=== PATIENT | male | born 1945 | race Caucasian/White ===

== ENCOUNTER → 2018-01-03 14:49 | Outpatient (CLI) | payer MEDICARE, BC, SELFPAY ==
[2018-01-03 17:35] LABS: Absolute Lymphocyte Count 1.39 X10^3/ul (0.83-4.51); Absolute Neutrophil Count 4.4 X10^3/uL (2.0-7.7); Basophil# 0.02 X10^3/uL; Basophil% 0.3 % (0-1); Eosinophils% 2.9 % (0-5); Hemoglobin 15.7 g/dl (13.0-16.5); Lymphocyte # 1.39 X10^3/ul (4.0); Lymphocyte % 20.4 % (19-41); Mean Corp Hgb Conc 32.7 g/gl (32-36); Mean Corpuscular Hgb 30.1 pg (27.0-32.0); Mean Corpuscular Volume 92.1 fL (80-94); Monocyte# 0.79 X10^3/uL; Monocyte% 11.6 % (0-10); Neutrophil # 4.42 X10^3/uL (2.7-7.7); Neutrophil % 64.7 % (47-70); Platelet Count 249 K/mm3 (150-450); RBC Distribution Width CV 13.9 % (11.6-14.6); RBC Distribution Width SD 46.8 fl (35.1-43.9); Red Blood Count 5.21 M/mm3 (4.6-6.2); White Blood Count 6.8 K/mm3 (4.4-11.0)
[2018-01-03 17:37] LABS: POSITIVE COUNT NO; POSITIVE DIFFERENTIAL NO; POSITIVE MORPHOLOGY NO
[2018-01-03 17:48] LABS: CRP 4.42 mg/L (0.0-3.0)
[2018-01-03 17:59] LABS: Erythrocyte Sedimentation Rate 4 mm/hr (0-20)
== END ==
PROVIDERS: Family Provider Family Medicine; PCP Family Medicine; Visit Provider Ophthalmology
DX: H53.2 Diplopia (principal)
CPT/HCPCS: 36415; 85025; 85652; 86140

== ENCOUNTER → 2018-05-31 14:39 | Outpatient (CLI) | payer MEDICARE, BC, SELFPAY ==
[2018-05-31 16:14] LABS: Anion Gap 7 (5-15); BUN 28 mg/dL (7-18); BUN/Creat Ratio 18.8 RATIO (10-20); Chloride 110 mmol/L (98-107); Creatinine, Serum 1.49 mg/dL (0.70-1.30); EST Glomerular Filtration Rate 49 mL/min (>60); Est Glom Filt Rate - Afr Amer 60 mL/min (>60); Glucose 112 mg/dL (74-106); Sodium Level 143 mmol/L (136-145)
[2018-06-02 09:25] LABS: PSA, Free 1.53 ng/mL; PSA, Free % 36.4 % (.); PSA, Total Ultrasensitive 4.2 ng/mL (0.0-4.0)
== END ==
PROVIDERS: Family Provider Family Medicine; PCP Family Medicine; Visit Provider Family Medicine
DX: R97.20 Elevated prostate specific antigen [PSA] (principal); N28.9 Disorder of kidney and ureter, unspecified
CPT/HCPCS: 36415; 80048; 84153; 84154

== ENCOUNTER → 2020-05-25 | Outpatient (CLI) | payer MEDICARE, BC, SELFPAY ==
[2020-05-25 17:52] LABS: Anion Gap 4 (5-15); BUN 25 mg/dL (7-18); Calcium,Total 8.7 mg/dL (8.5-10.1); Chloride 112 mmol/L (98-107); Creatinine, Serum 1.67 mg/dL (0.70-1.30); EST Glomerular Filtration Rate 43 mL/min (>60); Est Glom Filt Rate - Afr Amer 52 mL/min (>60); Glucose 91 mg/dL (74-106); Sodium Level 139 mmol/L (136-145)
== END | disposition home or self-care (01) ==
PROVIDERS: PCP Family Medicine; Referring Provider Family Medicine; Visit Provider Family Medicine
DX: N28.9 Disorder of kidney and ureter, unspecified (principal)
CPT/HCPCS: 36415; 80048

== ENCOUNTER → 2020-06-10 14:41 | Outpatient (CLI) | payer MEDICARE, BC, SELFPAY ==
--- NOTE | 2020-06-10 14:46 | CT_ITS ---
STUDY: CT BRAIN WITHOUT CONTRAST REASON FOR EXAM: Male, 74 years old. Vertigo. Headache. RADIATION DOSAGE (If Supplied By Facility): CTDIvol = ( 60.81 ) mGy, DLP = ( 998.67 ) mGycm TECHNIQUE: Transaxial CT imaging of the brain was performed without administration of intravenous contrast material. Individualized dose optimization techniques were used for this CT. COMPARISON: None. FINDINGS: There is no acute bleed or infarct. There are mild chronic ischemic changes. The ventricles are normal in configuration. There is no hydrocephalus. The visualized paranasal sinuses are clear. The mastoid air cells are well aerated. There is no skull fracture. CT/Brain/Head without Contrast IMPRESSION: No acute intracranial abnormality. Mild chronic ischemic change. Electronically Signed: Miguelito Rivas, at 15:22 EDT Tel , Service support ,
== END ==
PROVIDERS: PCP Family Medicine; Referring Provider Family Medicine; Visit Provider Family Medicine
DX: R51 Headache (principal)
CPT/HCPCS: 70450

== ENCOUNTER → 2021-01-19 13:53 | Outpatient (CLI) | payer MEDICARE, BC, SELFPAY ==
--- NOTE | 2021-01-19 14:14 | MRI_ITS ---
STUDY: MRI BRAIN WITHOUT CONTRAST (ATTENTION INTERNAL AUDITORY CANALS - I.A.C.''s) REASON FOR EXAM: Male, 75 years old. dizzy spells, left hearing loss and tinnitus, no contrast due to low gfr TECHNIQUE: Standardized multiplanar fat and water weighted pulse sequences were obtained. COMPARISON: Head CT dated June 10, 2020 FINDINGS: Normal bilateral temporal bones. Normal bilateral internal auditory canals. There is no demonstrated intracanalicular or cisternal vestibular schwannoma (acoustic neuroma). There is no enhancement of the bilateral VIIth or VIIIth cranial nerves. Normal bilateral cochlea, vestibules and semicircular canals. There is mild cerebral atrophy with widening of the extra-axial spaces and ventricular dilatation. There are a limited number of small white matter hyperintensities, distributed throughout the deep white matter tracts of the cerebral hemispheres, consistent with mild chronic white matter ischemic changes. There is no evidence for recent intracranial ischemia or other cause of cytotoxic edema on diffusion weighted imaging (DWI). No hydrocephalus is present. Normal bilateral basal ganglia. Normal thalami. Normal flow voids within the major intracranial circulation suggesting patency by spin echo criteria. Normal venous enhancement. Basilar artery dolichoectasia. There is no enhancing intra-axial or extra-axial abnormality. There is no extra-axial fluid accumulation. Normal sella turcica, pituitary gland, infundibular stalk, optic chiasm and hypothalamus. Normal tectal plate and pineal gland. Normal midbrain, donte and medulla. Normal cerebellum. Normal basal cisterns. No demonstrated orbital abnormality, within the constraints of a routine brain study. Normal visualized paranasal sinuses. Normal calvarium and skull base. Normal visualized soft tissue structures. Normal visualized upper cervical spine. MRI/Brain without Contrast IMPRESSION: 1. Mild chronic ischemic and involutional changes of the brain, as described above. 2. Normal exam of the bilateral internal auditory canals. Electronically Signed: Isak Willingham MD at 22:22 EDT , Service support ,
== END ==
PROVIDERS: PCP Family Medicine; Referring Provider Family Medicine; Visit Provider Family Medicine
DX: R42 Dizziness and giddiness (principal)
CPT/HCPCS: 70551

== ENCOUNTER → 2021-05-26 16:54 | Outpatient (CLI) | payer MEDICARE, BC, SELFPAY ==
[2021-05-26 18:01] LABS: Anion Gap 7 (5-15); BUN 29 mg/dL (7-18); BUN/Creat Ratio 15.8 RATIO (10-20); Calcium,Total 9.2 mg/dL (8.5-10.1); Chloride 108 mmol/L (98-107); Creatinine, Serum 1.83 mg/dL (0.70-1.30); EST Glomerular Filtration Rate 39 mL/min (>60); Est Glom Filt Rate - Afr Amer 47 mL/min (>60); Glucose 91 mg/dL (74-106); Potassium 4.1 mmol/L (3.5-5.1); Sodium Level 138 mmol/L (136-145)
[2021-05-28 22:20] LABS: PSA, Free 2.48 ng/mL; PSA, Total Ultrasensitive 6.7 ng/mL (0.0-4.0)
== END ==
PROVIDERS: PCP Family Medicine; Visit Provider Family Medicine
DX: N18.30 Chronic kidney disease, stage 3 unspecified (principal); R97.20 Elevated prostate specific antigen [PSA]
CPT/HCPCS: 36415; 80048; 84153; 84154

== ENCOUNTER → 2021-05-31 12:38 | Outpatient (CLI) | payer MEDICARE, BC, SELFPAY ==
--- NOTE | 2021-05-31 12:47 | US_ITS ---
STUDY: RENAL ULTRASOUND - COMPLETE REASON FOR EXAM: Male, 75 years old. CKD TECHNIQUE: Ultrasound evaluation of the kidneys was performed with real-time and static serrano-scale imaging. COMPARISON: None. FINDINGS: RIGHT KIDNEY: with mild renal atrophy. The right kidney measures 8.2 cm x 4.7 cm x 4.7 cm. There is diffuse thinning of the renal cortex. The renal cortex measures 0.9 cm. Increased echotexture of the renal cortex. There is no right renal mass or cyst. There are no right renal calculi. There is no right hydronephrosis. DISTAL RIGHT URETER: There is non-visualization of the distal right ureter. There is no demonstrated right ureterovesical junction calculus. There is no demonstrated right ureteral jet. LEFT KIDNEY: with mild renal atrophy. The left kidney measures 8.8 cm x 5.2 cm x 5.1 cm. There is diffuse thinning of the renal cortex. The renal cortex measures 0.9 cm. Increased echotexture of the renal cortex. There is no left renal mass or cyst. There are no left renal calculi. There is no left hydronephrosis. DISTAL LEFT URETER: There is non-visualization of the distal left ureter. There is no demonstrated left ureterovesical junction calculus. There is no demonstrated left ureteral jet. BLADDER: The distended urinary bladder has a volume of 48 ml. There is a normal wall thickness of the distended urinary bladder. There is no demonstrated mass within the urinary bladder. There are no demonstrated bladder calculi. Heterogeneous enlargement of the prostate. US/Kidney and Bladder IMPRESSION: Mild degree of bilateral renal cortical thinning. Enlarged heterogeneous appearance of the prostate. Electronically Signed: Bear Christensen MD at 15:19 EDT , Service support ,
== END ==
PROVIDERS: PCP Family Medicine; Referring Provider Family Medicine; Visit Provider Family Medicine
DX: N18.30 Chronic kidney disease, stage 3 unspecified (principal)
CPT/HCPCS: 76770

== ENCOUNTER → 2021-06-09 08:32 | Outpatient (CLI) | payer MEDICARE, BC, SELFPAY ==
--- NOTE | 2021-06-09 08:35 | RDU_ITS ---
Reason For Study: Chronic kidney disease stage 3 Right Renal Artery Left Renal Artery Right renal artery ostium 69.5/21.6 Left renal artery ostium 59.7/13 RSV/EDV. PSV/EDV. Right renal artery proximal Left renal artery proximal PSV/EDV 94.2/32.1 PSV/EDV. 67.1/21.6 . Right renal artery mid 91.9/27.6 Left renal artery mid 86.7/31.4 PSV/EDV. PSV/EDV . Right renal artery distal 64/18.7 Left renal artery distal 71.3/19.6 PSV/EDV. PSV/EDV. Right RAR 1.17. Left RAR 1.08. Right Renal Parenchyma Left Renal Parenchyma Upper Pole Medula 21.5/7.4 PSV/EDV. Left upper pole medulla 22.7/7.3 Right upper pole medulla EDR 0.34 . PSV/EDV . Right upper pole medulla R.I. Left upper pole medulla EDR 0.32 . 0.66 . Left upper pole medulla R.I. 0.68 . Upper Pierce Cortx 19.7/6.9 PSV/EDV. UP Cortex 20.2/9.2 PSV/EDV. Right upper pole cortex EDR 0.35 . Left upper pole cortex EDR 0.45 . Right upper pole cortex R.I. 0.65 . Left upper pole cortex R.I. 0.55 . Right lower Pole medulla 21.1/6.4 Left lower Pole medulla 25.7/9.2 PSV/EDV . PSV/EDV . Right lower pole medulla EDR 0.30 . Left lower pole medulla EDR 0.36 . Right lower pole medulla R.I. Left lower pole medulla R.I. 0.64 . 0.70 . Lower Pole Cortx 20.2/7.3 PSV/EDV. Lower Pole Cortex 16.8/6 PSV/EDV. Left lower pole cortex EDR 0.36 . Right lower pole cortex EDR 0.35 . Left lower pole cortex R.I. 0.64 . Right lower pole cortex R.I. 0.65 . Left Renal Hilar Right Renal Hilar LT Hilar avg 54.1/15.9 PSV/EDV . Right Hilar avg 52.7/18.1 PSV/EDV. Left hilar acceleration time 40 Right hilar acceleration time 30 m/sec. m/sec. Left Renal Dimensions Right Renal Dimensions Left kidney size 8.83 cm . Right kidney size 8.27 cm . Left cortical dimension 1.50 cm . Right cortical dimension 1.21 cm . Aorta Proximal abdominal aorta 1.87 x 1.85 cm . Proximal abdominal aorta peak systolic velocity is 80.6 cm/sec . Distal abdominal aorta 1.58 x 1.57 cm . Distal abdominal aorta peak systolic velocity is 75.7 cm/sec . VL/Renal Artery Duplex Ultrasound Interpretation Summary Maximal aortic diameter 1.87 x 1.85 cm proximally Less than 60% stenosis bilateral renal arteries Diminished right renal length at 8.27 cm Borderline left renal length 8.83 cm Ordering Physician: Sandip Crespo Referring Physician: Sandip Crespo Performed By: Lesly Padilla RVT
== END ==
PROVIDERS: PCP Family Medicine; Referring Provider Family Medicine; Visit Provider Family Medicine
DX: N18.30 Chronic kidney disease, stage 3 unspecified (principal)
CPT/HCPCS: 93975

== ENCOUNTER → 2021-10-11 08:37 | Outpatient (CLI) | payer MEDICARE, BC, SELFPAY ==
--- NOTE | 2021-10-11 10:38 | NEURO_ITS ---
NCS and/or EMG Patient Report Ordering Doctor: Jordan Almeida DATE OF SERVICE: 10/11/21 Indication: Bilateral hand pain and numbness (right greater than left). No localized or radicular neck pain. Evaluate for entrapment neuropathy. Findings: Nerve conduction studies were performed in the right and left upper extremities. The right median motor study recording the abductor pollicis brevis showed a reduced amplitude, prolonged distal latency and slowed conduction velocity. The right ulnar motor study recording the abductor digiti minimi showed a normal amplitude, normal distal latency and normal conduction velocity. No conduction block or focal slowing was present across the elbow. Right median-ulnar lumbri terrie / interosseous motor latencies could not be compared due to the absence of the lumbrical response. The right median sensory response recording digit two showed an absent response. The right ulnar sensory response recording digit five showed a normal amplitude, normal latency and borderline conduction velocity. The right radial sensory response recording over the extensor snuff box showed a normal amplitude, latency and conduction velocity. The left median motor study recording the abductor pollicis brevis showed a normal amplitude, prolonged distal latency and slowed conduction velocity. The left ulnar motor study recording the abductor digiti minimi showed a normal amplitude, normal distal latency and normal conduction velocity. No conduction block or focal slowing was present across the elbow. Left median-ulnar lumbrical / interosseous motor latencies showed an increased median latency compared to the ulnar. The left median sensory response recording digit two showed a reduced amplitude, prolonged latency and markedly slowed conduction velocity. The left ulnar sensory response recording digit five showed a normal amplitude, latency and conduction velocity. The left radial sensory response recording over the extensor snuff box showed a normal amplitude, latency and conduction velocity. Needle EMG of the right upper extremity and cervical paraspinal muscles was per formed. Active denervation was seen in the abductor pollicis brevis muscle. Only one volitional motor unit in the abductor pollicis brevis was seen. The unit was polyphasic with reduced recruitment. All other motor unit morphology, activation and recruitment patterns were normal. Needle EMG of the left abductor pollicis brevis was performed. No denervation was seen, but insertional activity was slightly increased. Motor units were large and polyphasic with reduced recruitment. Impression: This is a markedly abnormal study. 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 These findings are compatible with the clinical diagnosis of carpal tunnel syndrome. More severe changes were seen in the median nerve on the right side, though the lesion could not be localized to the wrist due to the advance nature of the injury. Neuromuscular ultrasound could be considered for further localization and characterization of the pathology. In addition, there is no electrophysiologic evidence of a superimposed cervical radiculopathy in the right upper extremity. William Tabares D.O. Multi Select Codes Neurology Neurology Interp Codes: 81654-12 Musc tst done w/nerv tst dubose (interp) (59 modifier), 79698-41 Musc test done w/n test comp (interp) and 57177-89 Nrv cndj test 13/> studies (interp)
== END ==
PROVIDERS: PCP Family Medicine; Referring Provider Orthopaedic Surgery; Visit Provider Orthopaedic Surgery
DX: R20.2 Paresthesia of skin (principal)
CPT/HCPCS: 95885; 95886; 95913

== ENCOUNTER → 2021-10-27 09:51 | Outpatient (CLI) | payer MEDICARE, BC, SELFPAY ==
[2021-10-27 12:17] LABS: Absolute Lymphocyte Count 0.91 X10^3/uL (0.83-4.51); Absolute Neutrophil Count 3.6 X10^3/uL (2.0-7.7); Basophil# 0.04 X10^3/uL; Basophil% 0.7 % (0-1); Eosinophil# 0.23 X10^3/uL; Eosinophils% 4.1 % (0-5); Hematocrit 48.7 % (40-54); Lymphocyte # 0.91 X10^3/ul (0.83-4.51); Lymphocyte % 16.2 % (19-41); Mean Corp Hgb Conc 32.9 g/dL (32-36); Mean Corpuscular Hgb 30.2 pg (27.0-32.0); Mean Corpuscular Volume 92.1 fL (80-94); Monocyte# 0.79 X10^3/uL; Monocyte% 14.1 % (0-10); NRBC Flagged by Analyzer 0 % (0-5); Neutrophil % 64.2 % (47-70); Platelet Count 285 K/mm3 (150-450); RBC Distribution Width CV 13.7 % (11.6-14.6); RBC Distribution Width SD 46.2 fl (35.1-43.9); Red Blood Count 5.29 M/mm3 (4.6-6.2); White Blood Count 5.6 K/mm3 (4.4-11.0)
[2021-10-27 12:31] LABS: Prothrombin Time (Protime)PT. 12.5 SECONDS (11.7-14.9)
[2021-10-27 12:32] LABS: Partial Thromboplast Time 26.7 Seconds (24.1-36.2)
[2021-10-27 12:35] LABS: Anion Gap 9 (5-15); BUN 23 mg/dL (7-18); BUN/Creat Ratio 16.1 RATIO (10-20); Calcium,Total 9.1 mg/dL (8.5-10.1); Chloride 109 mmol/L (98-107); Creatinine, Serum 1.43 mg/dL (0.70-1.30); EST Glomerular Filtration Rate 51 mL/min (>60); Est Glom Filt Rate - Afr Amer 62 mL/min (>60); Glucose 73 mg/dL (74-106); Potassium 4.4 mmol/L (3.5-5.1); Sodium Level 141 mmol/L (136-145)
[2021-10-27 13:01] LABS: Rheumatoid Factor < 10.0 IU/mL (<15); Uric Acid 6.3 mg/dL (3.5-7.2)
[2021-10-28 14:09] LABS: PROEL- A/G Ratio 1.4 (0.7-1.7); PROEL- Albumin 3.9 g/dL (2.9-4.4); PROEL- Alpha-1 Globulin 0.2 g/dL (0.0-0.4); PROEL- Alpha-2 Globulin 0.7 g/dL (0.4-1.0); PROEL- Gamma Globulin 0.8 g/dL (0.4-1.8); PROEL- Globulin, Total 2.7 g/dL (2.2-3.9); PROEL- TOTAL PROTEIN 6.6 g/dL (6.0-8.5)
[2021-10-29 09:45] LABS: ANTINUCLEAR ANTIBODIES DIRECT Negative (Negative)
== END ==
PROVIDERS: PCP Family Medicine; Referring Provider Family Medicine; Visit Provider Family Medicine
DX: Z01.818 Encounter for other preprocedural examination (principal); N18.30 Chronic kidney disease, stage 3 unspecified
CPT/HCPCS: 36415; 80048; 84165; 84550; 85025; 85610; 85730; 86038; 86431

== ENCOUNTER 2021-12-17 09:32 | Outpatient (CLI) | payer MEDICARE, BC, SELFPAY ==
[2021-12-20 16:58] LABS: PSA, Free 2.74 ng/mL; PSA, Free % 35.6 % (.); PSA, Total Ultrasensitive 7.7 ng/mL (0.0-4.0)
== END 2021-12-17 23:59 | disposition home or self-care (01) ==
LOC: MFPLAB 09:33
PROVIDERS: PCP Family Medicine; Referring Provider Family Medicine; Visit Provider Nurse Practitioner Adult Health
DX: R97.20 Elevated prostate specific antigen [PSA] (principal)
CPT/HCPCS: 36415; 84153; 84154

== ENCOUNTER 2023-02-25 11:57 | Emergency (ER) | payer OTHER, SELFPAY ==
[2023-02-25 11:58] VITALS: BP 124/83; PULSE 63; RESP 16; TEMP 36.7; O2SAT 94
[2023-02-25 12:19] VITALS: BMI 23.3
--- NOTE | 2023-02-25 12:26 | EDS_ITS ---
HPI History of Present Illness Chief Complaint: Dizziness Narrative Narrative: 77-year-old male who states he has had a longstanding history of vertigo. 2 years ago he had a work-up including CT of the brain and MRI. He is to take meclizine and Phenergan for his bouts of vertigo. His symptoms had improved. However, he started having dizzy spells again. He went and saw an lead based paint technician who wanted to check his hearing, and also told him that his sodium was high and put him on a water pill. He presents today because he had to take his daughter to work at 1030, and when he got home he sat down, and became very vertiginous. He tried to take his medication but vomited. He denies any chest pain or shortness of breath, no headache, no paresthesias. He gets nauseated when he moves his head. He states he usually takes his medication, will lay down, and his symptoms will resolve. He denies any new symptoms and states this feels very similar to his previous episodes of vertigo. [facility] Medical History Vertigo Home Medications Phenergan 02/25/23 [History Last Taken Unknown] hydrochlorothiazide 12.5 mg tablet 12.5 mg PO DAILY 02/25/23 [History Last Taken Unknown] meclizine 02/25/23 [History Last Taken Unknown] meclizine 25 mg tablet 25 mg PO 4X/DAY PRN PRN Dizziness #20 tabs 02/25/23 [Rx Last Taken Unknown] promethazine 12.5 mg tablet 12.5 mg PO Q6H PRN nausea and vomiting #14 tabs 02/25/23 [Rx Last Taken Unknown] Allergy/AdvReac Type Severity Reaction Status Date / Time ibuprofen [From Advil] Allergy Angioedema Verified 02/25/23 12:01 naproxen [From Aleve] Allergy Angioedema Verified 02/25/23 12:01 Surgical History H/O knee surgery Social History Smoking Status: Never smoker ROS ROS ED ROS Narrative Constitutional: No fever, no chills. HEENT: No sore throat. No neck pain. No loss of vision. No rhinorrhea. Cardiovascular: No chest pain. No palpitations. No pedal edema. Respiratory: No cough, no shortness of breath. Abdominal: No abdominal pain. Positive nausea, positive vomiting. Genitourinary: No dysuria. No hematuria. Musculoskeletal: No myalgias. No arthralgias. Neurologic: No headaches. Positive vertigo no lightheadedness. No paresthesias. Skin: No rash. No change in color. Psychiatric: No depression. No anxiety. EXAM Physical Exam Narrative Exam Narrative: Afebrile. Vital signs noted. HEENT: Normocephalic. Atraumatic. PERRL, EOMI. Neck soft and supple. No point tenderness or step off. Cardiovascular: Regular rate and rhythm. No murmurs, rubs, or gallops appreciated. Respiratory: No tachypnea. Lungs clear to auscultation bilaterally. Gastrointestinal: Abdomen soft, nontender, with normoactive bowel sounds. No rebound or guarding. Neurological: Awake. Alert. Nonfocal, nonlateralizing. Alert and oriented to person, place, time, and current events. DTRs equal and symmetric. No nystagmus on examination. Skin: No rash. Normal color. No pallor. Musculoskeletal: No pedal edema. Full range of motion extremities. Const Vital Signs: 02/25/23 11:58 Temperature 98.1 F Temperature Source Temporal Pulse Rate 63 Respiratory Rate 16 Blood Pressure 124/83 H Blood Pressure Mean 96 Pulse Ox 94 Oxygen Delivery Method Room Air MDM MDM MDM Narrative Medical decision making narrative: I reviewed the patient's prior records. I will obtain a CBC and BMP to look for any changes of hypernatremia or hyponatremia. I will refrain from IV fluids currently. He was given his medications of Phenergan 12.5 mg intramuscularly then he will be given meclizine 25 mg orally to see if he tolerates this. Currently, given his history of vertigo I do not feel that emergent CT is indicated as he has an otherwise normal neurological examination. I reviewed the patient's laboratory work, he has normal white count of 9.0, hemoglobin normal at 15.5, platelet count normal at 262. Electrolyte panel shows BUN of 27 with a creatinine of 1.46, he has chronic kidney disease. Glucose appropriately elevated at 167 with a normal anion gap/low at 4. His other electrolytes are normal including his sodium of 137. Upon repeat examination at approximately 1400, he is improved after intramuscular Phenergan and oral meclizine. At this point in time, I feel he can be discharged safely home with follow-up. He was written new prescriptions for meclizine and for Phenergan to take in combination as he states this usually treats his vertigo. I do not feel that any CT imaging is indicated as this is similar to his previous episodes. He will follow-up with his primary care physician for possible referral to neurology as well. He states that he has not followed up with neurology in the past and has been following up with the ENT. Return instructions were reviewed. Disposition is discharged home in stable condition. Lab Data Attestation: I reviewed the patient's lab results. Labs: Laboratory Results - last 24 hr 02/25/23 02/25/23 12:25 12:25 WBC 9.0 RBC 5.05 Hgb 15.5 Hct 46.2 MCV 91.5 MCH 30.7 MCHC 33.5 RDW Std Deviation 42.3 RDW Coeff of Kosta 12.8 Plt Count 262 MPV 10.0 Immature Gran % (Auto) 0.400 Neut % (Auto) 80.9 H Lymph % (Auto) 9.2 L Hampton % (Auto) 7.5 Eos % (Auto) 1.6 Baso % (Auto) 0.4 Absolute Neuts (auto) 7.3 Absolute Lymphs (auto) 0.83 Nucleated RBC % 0 Sodium 137 Potassium 3.5 Chloride 107 Carbon Dioxide 26.0 Anion Gap 4 L BUN 27 H Creatinine 1.46 H Estim Creat Clear Calc 41.64 Est GFR (MDRD) Af Amer 60 Est GFR (MDRD) Non-Af 50 L BUN/Creatinine Ratio 18.5 Glucose 167 H Calcium 9.0 Discharge Plan Triage Chief Complaint: Dizziness ED Provider: Mika Leo Dx/Rx/DC Orders Clinical Impression: Vertigo, Nausea and vomiting Instructions: ED BPV Vertigo, ED Vertigo, Unspecified Prescriptions: New meclizine 25 mg tablet 25 mg PO 4X/DAY PRN PRN (Reason: Dizziness) Qty: 20 0RF promethazine 12.5 mg tablet 12.5 mg PO Q6H PRN (Reason: nausea and vomiting) Qty: 14 0RF Rx Instructions: 3 doses during day; last dose no later than 4 hr before bedtime No Action hydrochlorothiazide 12.5 mg tablet 12.5 mg PO DAILY Label Comments: TAKE 1 TABLET BY MOUTH ONCE DAILY Phenergan meclizine Primary Care Provider: Sandip Crespo Referrals: Sandip Crespo MD [Primary Care Provider] - 3-5 Days Narinder Argueta MD [Non-Staff -Ordering Privileges] - As soon as possible Activity Restrictions/Additional Instructions: Take your occasions as directed for vertigo as you had in the past. Follow-up with your primary care physician for referral to neurology as needed. Disposition Disposition: Home, Self Care
[2023-02-25] MEDS: proMETHazine 25 MG/ML Syringe 12.5 MG IM (12:34)
[2023-02-25 12:37] LABS: Absolute Lymphocyte Count 0.83 X10^3/uL (0.83-4.51); Absolute Neutrophil Count 7.3 X10^3/uL (2.0-7.7); Basophil# 0.04 X10^3/uL; Basophil% 0.4 % (0-1); Eosinophil# 0.14 X10^3/uL; Eosinophils% 1.6 % (0-5); Hematocrit 46.2 % (40-54); Hemoglobin 15.5 g/dL (13.0-16.5); Lymphocyte # 0.83 X10^3/ul (0.83-4.51); Lymphocyte % 9.2 % (19-41); Mean Corp Hgb Conc 33.5 g/dL (32-36); Mean Corpuscular Hgb 30.7 pg (27.0-32.0); Mean Corpuscular Volume 91.5 fL (80-94); Monocyte# 0.68 X10^3/uL; Monocyte% 7.5 % (0-10); NRBC Flagged by Analyzer 0 % (0-5); Neutrophil # 7.29 X10^3/uL (2.7-7.7); Neutrophil % 80.9 % (47-70); Platelet Count 262 K/mm3 (150-450); RBC Distribution Width CV 12.8 % (11.6-14.6); RBC Distribution Width SD 42.3 fl (35.1-43.9); Red Blood Count 5.05 M/mm3 (4.6-6.2)
[2023-02-25] MEDS: Meclizine HCl 25 MG Tablet PO (12:46)
[2023-02-25 12:47] LABS: Anion Gap 4 (5-15); BUN 27 mg/dL (7-18); BUN/Creat Ratio 18.5 RATIO (10-20); Chloride 107 mmol/L (98-107); Creatinine, Serum 1.46 mg/dL (0.70-1.30); EST Glomerular Filtration Rate 50 mL/min (>60); Est Glom Filt Rate - Afr Amer 60 mL/min (>60); Estimated Creatinine Clearance 41.64 ml/min; Glucose 167 mg/dL (74-106); Potassium 3.5 mmol/L (3.5-5.1); Sodium Level 137 mmol/L (136-145)
== END 2023-02-25 14:05 | disposition home or self-care (01) ==
PROVIDERS: Emergency Provider Emergency Medicine; PCP Family Medicine; Visit Provider Emergency Medicine
DX: R42 Dizziness and giddiness (principal); R11.2 Nausea with vomiting, unspecified; N18.9 Chronic kidney disease, unspecified
CPT/HCPCS: 80048; 85025; 96372; 99284; A4216

== ENCOUNTER 2023-03-31 07:30 | Outpatient (RCR) | payer MEDICARE, BC, SELFPAY ==
--- NOTE | 2023-03-06 07:53 | HP.PTEVAL ---
Patient's Visit Information SHAHANA RAJAN is a 77 year old M referred to Physical Therapy by Dr. 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 Date of Evaluation: 03/06/23 Physical Therapist: Hilario Jimenez DPT, OCS, CSCS - Visit Plan Frequency: 1-2x /Week Duration: 2-4 Weeks Plan: Given VOR and head movemement(Cawthorne Hien) ex for trial. Will f/u 2-3 times as needed and helpful to progress. Cervicogenic dizzyness should be considered and may treat 2x/week for 2-4 weeks if vestibular ex not helpful. since no obvious problem was found today in vestibular exam and cervicaogenic would be a trial at best, Pt is to f/u with doctor for other options while we treat him. - Subjective 3 yrs ago developed vertigo once per month and lasted a year, no problem last two years. Earlier this year in December had 5-6 episodes of vertigo. Sometimes in middle of night gets a couple hours of vertigo, goes to sleep and hopes they are gone when he wakes up. Now every day some degree of dizzyness. Has seen ENT who wants him on a low salt diet. Gave a salt pill and takes that everyday and he cut out sodium as much as he could. . this did not help any. gave a round of steroids which did not help much. Is off balance at times, no falls but did crawl a time when he was spinning. That spinning can last a couple hours. Did go to ER one time and was given nausea shot and meclizine. Meclizine helps a little bit. Gets pain above R eye a little bit when he is dizzy. Had catscan 2 yrs ago and MRI and did not find anything. No pattern to these spells. Keeps him from going anywhere when [id number] and avoids going too far because he doesn't know what is going to happen. Has some degree of dizzyness daily now. No neurologist. Whiskey Regauger. Still working, not as big of a problem at work. No spinning in week and a half - Objective Walks I with good balance today. Trasnfers without UE, steps reciprocal without rail. No [id number] created walking today, Walking VOr without a problem. cervical aROM 50 R rotation and 55 L rotation without pain, 45 extension, no pain, stiff. UE AROM WNL. LE AROM WFL and strong. Sensation UE and LE WFL to gross light touch. - B hallpike tucker. - roll test. MSQ, no dizzyness with any positions today excetp head turns and nods 1/10 for a second. Oculaomotor: no nystagmus with gaze or head shake. - skew eye deviation. - ocular tilt. - head thrust. + DVA 5-6 lines difference then SVA. Pursuit and saccades normal and asymptomatic. VOR slight dizzyness after 30 seconds for 2 seconds. H , Vertical is OK. bi and tri reflexes 2/3 - Balance/Special Test Scores Functional Gait Assessment Score: 28 % Disability: 6.6700 Dizziness Score: 26 - Goals Goal 1:: Dizzyness feeling not daily and 80% improved Goal Time Frame: 2-4 Weeks Goal 2:: pt I in management of dizzy feeling. Goal Time Frame: 2-4 Weeks Goal 3:: No spinning episodes for 4 weeks Goal Time Frame: 2-4 Weeks - Rehabilitation Potential Physical Therapy Diagnosis: dizzyness unknow etiology Rehabilitation Potential: Questionable - Anticipated Interventions Patient/Client Instruction: Educate patient on: Condition, Plan of Care For the Purpose of:: To increase tolerance to activity/condition/position Therapeutic Exercise to Include: Strength training, Flexibilty training, Passive ROM, Active ROM Comment: vestibular For the Purpose of:: To increase tolerance to activity/condition/position Manual Therapy Techniques to Include: Mobilization, Passive ROM, Soft tissue mobilization For the Purpose of:: To increase tolerance to activity/condition/position Thank you for the opportunity to evaluate your patient. For Medicare and Medicare HMO plans, please review the plan of care and approve it. It will need to be FAXED BACK to us at [phone] for Medicare purposes. For Medicare only, by signing this I certify the plan of care. Please let me know if there are questions or concerns regarding this plan of care. Physician Signature: Date:
--- NOTE | 2023-03-31 07:43 | HP.PTDCSUM ---
It has been my pleasure to treat SHAHANA RAJAN referred by Dr. Sandip Crespo MD, with the diagnosis of Meinieres disease for a total of 3 visit(s). Discharge Date: 03/31/23 Please see the following information for a summary of their discharge status. Subjective: 95% better. no vertigo in 3 weeks, Head is fuzzy for short times. Not sure what might cause it but it is transient. Doies exercises 4x/day. Antibiotic or exercises. % Improvement: 95 Objective/Function: 65 R rotation with pull and 60 extension. Head movements without dizzy or symptoms today. FGA is perfect and higher than normal for age. Goal 1:: Dizzyness feeling not daily and 80% improved Goal Progress: Goal Met Goal 2:: pt I in management of dizzy feeling. Goal Progress: Goal Met Goal 3:: No spinning episodes for 4 weeks Goal Progress: 3 weeks Plan: d/c If there are questions or concerns regarding this patient's physical therapy, please feel free to call me at [phone]. Thank you for the referral of this patient. Sincerely, Hilario Jimenez, DPT, OCS, CSCS Balance/Gait/Functional tests - Balance/Special Test Scores Functional Gait Assessment Score: 27 % Disability: 10.0000 Dizziness Score: 0
== END 2023-03-31 19:00 | disposition home or self-care (01) ==
LOC: PT 07:30
PROVIDERS: PCP Family Medicine; Referring Provider Family Medicine; Visit Provider Family Medicine
DX: H81.09 Meniere's disease, unspecified ear (principal)
CPT/HCPCS: 97110; 97162; 97164

== ENCOUNTER 2023-11-10 09:06 | Inpatient (IN) | payer MEDICARE, BC, SELFPAY ==
[2023-11-10] VITALS (9 sets, daily range): BP systolic 118–146; BP diastolic 77–98; PULSE 78–118; RESP 16–26; TEMP 36.7–37; O2SAT 88–95; BMI 23.6; BMI 22.2
--- NOTE | 2023-11-10 09:34 | EDS_ITS ---
HPI History of Present Illness Chief Complaint: Shortness of Breath Informant: patient and family Onset/Context/Timing Onset: Today Timing: Intermittent Current Severity: Mild Maximum Severity: Mild Worsened by: Nothing Relieved by: Nothing Associated Symptoms cough Chest Pain: Positive for None Narrative Narrative: 77-year-old male history of prior vertigo. Recently the family has had URI symptoms for the last several weeks going through the house. He has had a nonproductive cough. States today felt short of breath. Denies any vomiting or diarrhea. No melena. No recent fever. No history of DVT or PE risk factors. No calf pain or swelling. No hemoptysis. No chest pain. PE Risk Factors: Negative for Cancer, OCP + Smoking + > 35, Prior DVT or PE, Recent immobilization, Recent surgery or Recent travel Prior similar symptoms: No Recent Illness/Hospitalization: No PFSH PFSH Medical History Vertigo Home Medications Phenergan 02/25/23 [History Last Taken Unknown] meclizine 02/25/23 [History Last Taken Unknown] meclizine 25 mg tablet 25 mg PO 4X/DAY PRN PRN Dizziness #20 tabs 02/25/23 [Rx Last Taken Unknown] promethazine 12.5 mg tablet 12.5 mg PO Q6H PRN nausea and vomiting #14 tabs 02/25/23 [Rx Last Taken Unknown] Allergy/AdvReac Type Severity Reaction Status Date / Time ibuprofen [From Advil] Allergy Angioedema Verified 11/10/23 09:14 naproxen [From Aleve] Allergy Angioedema Verified 11/10/23 09:14 Surgical History H/O knee surgery Social History Smoking Status: Never smoker ROS ROS ED ROS Narrative Recent URI symptoms. Short of breath today. Review of Systems ROS Unobtainable: Denies due to encephalopathy Constitutional Constitutional ED: Denies chills or fever(s) Eyes Eyes: Denies blurry vision ENT ENT ED: Denies ear pain Cardiovascular Cardiovascular: Denies chest pain Respiratory/Chest Respiratory/Chest: Reports cough and dyspnea Gastrointestinal Gastrointestinal: Denies abdominal pain, diarrhea, nausea or vomiting Genitourinary Genitourinary ED: Denies dysuria or hematuria Musculoskeletal Musculoskeletal: Denies arthralgias or back pain Integumentary Denies abscess Neurologic Neurologic: Denies headache(s) Psychiatric Psychiatric: Denies anxiety Endocrine Endocrinology: Denies cold intolerance Hematologic/Lymphatic Hematologic/Lymphatic: Denies easy bleeding, easy bruising or lymphadenopathy Allergic/Immunologic Allergic/Immunologic ED: Denies mouth swelling, tongue swelling or urticaria EXAM Physical Exam Narrative Exam Narrative: Well-appearing 77-year-old male. Vital signs are stable except pulse ox 88% on room air 92% on 2 L. He is hypoxic without oxygen. No distress. Family at bedside. H EENT exam unremarkable. Mytrex membranes. Neck nontender no JVD. No lymphadenopathy. Lungs clear to auscultation bilaterally. Heart regular rhythm rate about 80 no murmur. Chest wall and ribs nontender. Abdomen soft nontender. Back nontender. Moving all 4 extremities. 5 5 brass roller strength. Dorsi plantarflexion intact. Calves are nontender that edema or cords. Neurologically is awake alert no focal motor deficits. Const Vital Signs: 11/10/23 09:07 11/10/23 09:10 11/10/23 09:12 Temperature 98.2 F 98.2 F Temperature Source Oral Oral Pulse Rate 78 118 H Respiratory Rate 26 H 19 H Respiratory Effort Short of Breath Respiratory Depth Deep Respiratory Pattern Tachypnea Blood Pressure 118/94 H 118/94 H Blood Pressure Mean 102 102 Pulse Ox 88 92 Oxygen Delivery Method Room Air Nasal Cannula Nasal Cannula Oxygen Flow Rate (L/min) 2 2 11/10/23 11:06 Temperature Temperature Source Pulse Rate 97 Respiratory Rate 23 H Respiratory Effort Respiratory Depth Respiratory Pattern Blood Pressure 131/93 H Blood Pressure Mean 105 Pulse Ox 92 Oxygen Delivery Method Room Air Oxygen Flow Rate (L/min) Positive well nourished and well developed; Negative for obese, cachectic, contractures or unkempt General Appearance ED: well developed and NAD; Negative for unkempt, cachectic, contractures or pallor Nutritional Appearance: Negative for cachectic or obese HEENT Reports moist mucous membranes; Denies dry mucous membranes atraumatic; Negative for trauma or tenderness Mouth ED: No dry mucous membranes Mouth: No dry mucous membranes Eyes PERRL and EOMs intact bilaterally General Eye ED: Negative for pale conjunctiva, scleral icterus or other Neck no lymphadenopathy, supple, no meningeal signs and no JVD General: Negative for tenderness Lymph Lymphatic: Negative for other Chest Wall Chest: Negative for other Resp normal respiratory effort and clear to auscultation bilaterally Effort and Inspection: Negative for pain with movement Auscultation: Negative for rales, rhonchi or wheezes Cardio regular rate, regular rhythm, S1 normal heart sound, S2 normal heart sound and no murmurs Rate: Negative for bradycardia, tachycardic or other Rhythm: Negative for abnormal rhythm GI non-tender, non-distended and no masses Inspection: Negative for other Auscultation: normoactive bowel sounds Palpation: soft; Negative for tender or guarding Back/Spine no CVA tenderness and normal to inspection General Back: Negative for CVA tenderness or tenderness Extremity normal to inspection General Extremety ED: Negative for edema, tenderness or other findings General Extremity: Negative for edema or other findings Neuro oriented x3 and CN's II-XII intact bilaterally Sensorium / Orientation: alert, oriented to person, oriented to place and oriented to time; Negative for orientation impaired, confused, lethargic or stuporous Speech: speech normal Motor Exam: strength 5/5 throughout Psych mental status grossly normal Appearance: Negative for unkempt Attitude: No agitated Mood & Affect: Negative for depressed, anxious or tearful Thought Process: normal thought process Skin no wounds and skin turgor normal General Skin Exam: Negative for jaundice or pallor Lesions: no lesions Rashes: no rashes Trauma: Negative for abrasion or laceration MDM MDM MDM Narrative Medical decision making narrative: 77-year-old male recent URI with shortness of breath. Exam benign. EKG, chest x-ray screening labs and COVID and flu PCR. Patient was hypoxic at 88% on room air. No DVT or PE risk factors. Repeat exam at 12:03 p.m. patient doing well. Without complaints. He had shortness of breath today with exertion. He had no cardiac history. No DVT or PE history or risk factors. With the 2 elevated troponins I will speak to the hospitalist for but have the patient admitted for further evaluation and workup. D-dimer elevated. CTA was obtained. Awaiting the formal read but looks like right-sided pulmonary emboli possibly left also. Patient will be anticoagulated if radiologist agrees. History & Record Review Discussion w/independent historian: Patient Additional record(s) reviewed:: Prior inpatient record, Prior outpatient record, Prior ED visit and Prior labs Lab Data Attestation: I reviewed the patient's lab results. Lab results narrative: CBC shows a white count 13.2. H&H is 16 and 50. Platelets 228. BMP shows a gap of 8 BUN and creatinine are 24 and 1.79. Glucose 150. Initial troponin 131. 2-hour troponin 354. Labs: Laboratory Results - last 24 hr 11/10/23 11/10/23 08:53 11:15 WBC 13.2 H RBC 5.42 Hgb 16.2 Hct 50.9 MCV 93.9 MCH 29.9 MCHC 31.8 L RDW Std Deviation 44.1 H RDW Coeff of Kosta 12.9 Plt Count 228 MPV 10.1 Immature Gran % (Auto) 0.800 Neut % (Auto) 62.4 Lymph % (Auto) 21.8 [place] % (Auto) 11.4 H Eos % (Auto) 2.9 Baso % (Auto) 0.7 Absolute Neuts (auto) 8.2 H Absolute Lymphs (auto) 2.87 Nucleated RBC % 0 D-Dimer Quant (PE/DVT) 12.10 H* Sodium 141 Potassium 3.7 Chloride 109 H Carbon Dioxide 24.0 Anion Gap 8 BUN 24 H Creatinine 1.79 H Est GFR (MDRD) Af Amer 48 L Est GFR (MDRD) Non-Af 39 L BUN/Creatinine Ratio 13.4 Glucose 150 H Calcium 9.7 Troponin I High Sens 131 H* 354 H* B-Natriuretic Peptide 241.5 H Radiography Chest X-Ray - ED: 1 View, Read by ED Physician, Read by Radiologist, Heart, Lungs, Mediastinum, Bony Structures, No Acute Disease and Chronic Changes Diagnostic Testing: Clinical Impression(s) from Imaging Studies Chest X-Ray 11/10/23 09:36 IMPRESSION: Normal x-ray examination of the chest. Electronically Signed: Duran Robbins MD at 10:24 EST Reading Location ID and State: [facility] / [place] , Service support , Chest x-ray, portable, single view interpreted both by myself and the radiologist shows no acute abnormality. Normal cardiac silhouette. Normal lung casanova. No pneumonia. No effusions. Rhythm Strip Rhythm Strip: Sinus Tach Rate: 111 Ectopy: None EKG Initial EKG: Attestation: I personally reviewed and interpreted this EKG as follows: Interpretation: No Acute Injury Pattern and Sinus Tachycardia Comments: Sinus tachycardia rate of 111. No acute signs of [place] or ischemia. Prior EKG tracings: not available for review Prior: No Prior Discharge Plan Dx/Rx/DC Orders Clinical Impression: Acute dyspnea, Elevated troponin, Hypoxia, Pulmonary emboli Disposition Disposition: Acute Care Hospital [facility]
--- NOTE | 2023-11-10 09:36 | RAD_ITS ---
STUDY: X-RAY CHEST REASON FOR EXAM: Male, 77 years old. Shortness of breath, cough TECHNIQUE: Single AP portable view of the chest. COMPARISON: None. FINDINGS: EKG leads overlie the chest The lungs are clear and expanded. There is no demonstrated pleural abnormality. Normal size heart. Normal mediastinum and cortes. Normal visualized pulmonary arteries. Normal visualized aortic arch and descending thoracic aorta. Normal visualized thoracic spine. Normal visualized ribs, clavicles, and shoulders. There is no demonstrated abnormality of the visualized soft tissue structures of the upper abdomen. RAD/Chest 1 View (Portable) IMPRESSION: Normal x-ray examination of the chest. Electronically Signed: Duran Robbins MD at 10:24 EST ,
[2023-11-10 09:44] LABS: Absolute Lymphocyte Count 2.87 X10^3/uL (0.83-4.51); Absolute Neutrophil Count 8.2 X10^3/uL (2.0-7.7); Basophil# 0.09 X10^3/uL; Basophil% 0.7 % (0-1); Eosinophil# 0.38 X10^3/uL; Eosinophils% 2.9 % (0-5); Hematocrit 50.9 % (40-54); Hemoglobin 16.2 g/dL (13.0-16.5); Lymphocyte # 2.87 X10^3/ul (0.83-4.51); Lymphocyte % 21.8 % (19-41); Mean Corp Hgb Conc 31.8 g/dL (32-36); Mean Corpuscular Hgb 29.9 pg (27.0-32.0); Mean Corpuscular Volume 93.9 fL (80-94); Mean Platelet Vol. 10.1 fl (6.2-12.0); Monocyte% 11.4 % (0-10); NRBC Flagged by Analyzer 0 % (0-5); Neutrophil # 8.23 X10^3/uL (2.7-7.7); Neutrophil % 62.4 % (47-70); Platelet Count 228 K/mm3 (150-450); RBC Distribution Width CV 12.9 % (11.6-14.6); RBC Distribution Width SD 44.1 fl (35.1-43.9); Red Blood Count 5.42 M/mm3 (4.6-6.2); White Blood Count 13.2 K/mm3 (4.4-11.0)
[2023-11-10 10:12] LABS: Anion Gap 8 (5-15); BUN 24 mg/dL (7-18); BUN/Creat Ratio 13.4 RATIO (10-20); Calcium,Total 9.7 mg/dL (8.5-10.1); Chloride 109 mmol/L (98-107); Creatinine, Serum 1.79 mg/dL (0.70-1.30); EST Glomerular Filtration Rate 39 mL/min (>60); Est Glom Filt Rate - Afr Amer 48 mL/min (>60); Glucose 150 mg/dL (74-106); Potassium 3.7 mmol/L (3.5-5.1); Sodium Level 141 mmol/L (136-145); Troponin-I HS 131 pg/mL (3.0-78.0)
[2023-11-10 11:56] LABS: Troponin-I HS 354 pg/mL (3.0-78.0)
--- NOTE | 2023-11-10 13:06 | CT_ITS ---
We are attempting to reach an attending provider to discuss findings. An addendum with communication details will be sent when the communication is complete. STUDY: CTA CHEST REASON FOR EXAM: Male, 77 years old. Atypical chest pain, diaphoresis RADIATION DOSAGE (If Supplied By Facility): CTDIvol = ( 9.01 ) mGy, DLP = ( 349.52 ) mGycm TECHNIQUE: The examination was performed with the intravenous administration of IV 75mL Isovue-300. Post-processing of the angiographic images was performed, with multiplanar reformation and 3D reconstruction. Individualized dose optimization techniques were used for this CT. COMPARISON: None. FINDINGS: Low density filling defects noted within the mid and distal aspects of both the left and right main pulmonary arteries with extension into all 5 pulmonary lobes. Subtle emboli noted across the right mid and lower lobe pulmonary arteries. Filling defects noted throughout the multiple branches of the right middle upper and lower lobe pulmonary arteries as well as in the left upper and lower lobe pulmonary arteries. There is evidence of right heart strain with flattening of the interventricular septum and some reflux of contrast into the IVC. Normal thoracic aorta and visualized great vessels. There is no demonstrated aortic dissection. Normal heart and pericardium. Normal mediastinum. Normal hilar regions. Normal visualized trachea and bronchi. The lungs are well expanded. There is lingular atelectasis but no organized infiltrate or effusion. Normal pleura. Normal chest wall structures. There are degenerative changes of thoracic spine. Limited cuts through the upper abdomen do not show suspicious abnormality CT/CTA Chest W/WO Contrast IMPRESSION: Extensive bilateral PE noted. There low-density filling defects within the mid and distal aspects of the main pulmonary arteries with extension into all 5 pulmonary lobes and there branches, sagittal embolus noted at the bifurcation of the mid and lower lobe branches. There is flattening of the interventricular septum and reflux of contrast into the IVC concerning for right heart strain Lingular atelectasis Degenerative bony changes Electronically Signed: Duran Rbobins MD at 14:07 EST ,
[2023-11-10 13:09] LABS: BNP,B-Type NATRIURETIC PEPTIDE 241.5 pg/mL (0-100)
--- NOTE | 2023-11-10 14:16 | PCM.HP.STD ---
HPI - General General Date of Admission: 11/10/23 Date of Service: 11/10/23 Chief Complaint: Shortness of breath HPI Narrative SHAHANA RAJAN, is a 77 M who presented to the emergency department at [facility] on 11/10/2023. Patient states he had been in his usual state of health up until today. He noticed when he was going down the stairs into the basement he got a little more short of breath and he has typically ever gotten and then when he was coming up the stairs he got markedly short of breath. He states this is very atypical for him and he is never had this before. He reported he did the stairs yesterday without any difficulty. He has had no recent travel, surgeries, prolonged sitting experiences and no family history of VTE. He is not up-to-date on his cancer screening and it has been at least 2 years since he had a PSA and has never had a colonoscopy. Vital signs on presentation showed a temperature of 98.2, heart rate 118, blood pressure was 118/94 respiratory rate was 19 and oxygen saturation was 88% on room air. Saturations improved to 82% with 2 L supplemental nasal cannula. His CBC showed a mild leukocytosis with a white count of 13.2 but no left shift. There was a monocytosis at 11.4% monocytes. His BMP showed normal electrolytes with a BUN of 24 and a creatinine of 1.79 (baseline creatinine appears to run between 1.4 and 1.8), his glucose was 150. His troponin was 131 with a repeat at 354. I was called for admission and added on a D-dimer and a BNP his BNP was elevated at 241.5 and his D-dimer was 12 so I obtained a CTA of the chest. His initial chest x-ray was unremarkable. CTA of the chest showed marked PE noted in the mid and distal aspects of the left and right main pulmonary arteries with extension into all 5 pulmonary lobes as well as subtle emboli noted in the right mid and lower lobe, left mid and lower lobe and right mid upper and lower lobe, left upper and lower lobe. There was evidence of heart strain with broadening of the interventricular septum and reflux of contrast into the IVC. His EKG showed typical PE pattern with S1Q3T3. Hypercoag panel was obtained he was started on a heparin drip. He will be admitted to the PCU for full admission. [facility] Medical History Stage 3b chronic kidney disease (CKD) Vertigo Home Medications meclizine 25 mg tablet 25 mg PO 4X/DAY PRN PRN Dizziness #20 tabs 02/25/23 [Rx Last Taken Unknown] acetaminophen 325 mg capsule 650 mg PO DAILY knee pain 11/10/23 [History Last Taken 11/10/23] Allergy/AdvReac Type Severity Reaction Status Date / Time ibuprofen [From Advil] Allergy Angioedema Verified 11/10/23 09:14 naproxen [From Aleve] Allergy Angioedema Verified 11/10/23 09:14 no significant family history Surgical History H/O knee surgery Social History (Updated 11/10/23 @ 16:[address] 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 Smoking Status: Never smoker alcohol intake: never substance use type: does not use ROS Constitutional Constitutional: Denies anorexia, change in weight, chills, fatigue, fever(s), malaise, night sweats, weakness or other Eyes Eyes: Denies blurry vision, change in eye color, change in vision, discharge from eye(s), double vision, erythema, eye pain, loss of vision or other ENT HEENT: Reports post nasal drip; Denies abnormal hearing, dysphagia, ear pain, epistaxis, headache(s), hearing loss, nasal congestion, nasal discharge, sinus pressure, sore throat or other Cardiovascular Cardiovascular: Reports dyspnea on exertion; Denies chest pain, claudication, edema, lightheadedness, orthopnea, palpitations, paroxysmal nocturnal dyspnea, rapid heart rate, syncope or other Respiratory/Chest Respiratory/Chest: Reports cough, shortness of breath at rest and shortness of breath with exertion Gastrointestinal Gastrointestinal: Denies abdominal pain, coffee ground emesis, constipation, diarrhea, dyspepsia, hematemesis, hematochezia, loose stools, melena, nausea, vomiting or other Genitourinary Genitourinary: Denies burning urination, difficulty urinating, dysuria, hematuria, nocturia, urinary frequency, urinary hesitancy, urinary incontinence, urinary urgency or other Musculoskeletal Musculoskeletal: Reports joint pain and joint stiffness; Denies arthralgias, back pain, joint swelling, myalgias, neck pain or other Neurologic Neurologic: Denies abnormal gait, abnormal speech, confusion, disequilibrium, dizziness, focal weakness, headache(s), numbness, paresthesias, seizure-like activity, seizures, syncope, tingling, tremor(s) or other Psychiatric Psychiatric: Denies anxiety, depression, homicidal ideation, suicidal ideation or other Endocrine Endocrinology: Denies change in body appearance, cold intolerance, excessive sweating, heat intolerance, polydipsia, polyuria or other Hematologic/Lymphatic Hematologic/Lymphatic: Denies anemia, easy bleeding, easy bruising, lymphadenopathy or other Allergic/Immunologic Allergic/Immunologic: Denies rhinitis, hives, eczemia, asthma or other Vital Signs Vital Signs Vital Signs: 11/10/23 09:07 11/10/23 09:10 11/10/23 09:12 Temperature 98.2 F 98.2 F Temperature Source Oral Oral Pulse Rate 78 118 H Respiratory Rate 26 H 19 H Respiratory Effort Short of Breath Respiratory Depth Deep Respiratory Pattern Tachypnea Blood Pressure 118/94 H 118/94 H Blood Pressure Mean 102 102 Pulse Ox 88 92 Oxygen Delivery Method Room Air Nasal Cannula Nasal Cannula Oxygen Flow Rate (L/min) 2 2 11/10/23 11:06 11/10/23 12:54 Temperature Temperature Source Pulse Rate 97 95 Respiratory Rate 23 H 21 H Respiratory Effort Respiratory Depth Respiratory Pattern Blood Pressure 131/93 H 138/98 H Blood Pressure Mean 105 111 Pulse Ox 92 93 Oxygen Delivery Method Room Air Oxygen Flow Rate (L/min) Physical Exam Const alert, oriented x3, no apparent distress, average body habitus, healthy appearing and well nourished Constitutional Narrative: Very pleasant, older, white male, sitting up in bed, appears younger than stated age, appears comfortable and nontoxic, at bedside, nursing at bedside, currently satting about 92% on 2 L nasal cannula HEENT normocephalic, head/scalp atraumatic and moist oral mucous membranes HEENT Narrative: Mild to moderate hearing loss, Mallampati is 2-3, no thrush, dentition is good for age Eyes PERRL, EOMs intact bilaterally and conjunctivae normal Eyes Narrative: No scleral icterus Neck no lymphadenopathy and supple Neck Narrative: Trachea midline, no thyroid enlargement Resp normal respiratory effort, no retractions, no use of accessory muscles and clear to auscultation bilaterally Resp Narrative: Patient without any significant respiratory distress on 2 L nasal Auscultation: Negative for rales, rhonchi or wheezes Cardio regular rhythm, S1 normal heart sound, S2 normal heart sound, no murmurs, no rub, no gallops and no clicks Cardio Narrative: Mild tachycardia GI normal to inspection, nondistended, normoactive bowel sounds, soft to palpation and non-tender Extremity no clubbing, cyanosis or edema Extremity Narrative: 2+ pedal pulses, 2+ radial pulses Skin no rashes or lesions noted, no wounds, skin turgor normal, no jaundice, no petechiae and no mottling Neuro oriented x3, CN's II-XII intact bilaterally, moves all extremities and no focal motor deficits Speech: speech normal Motor Exam: strength 5/5 throughout Psych affect normal Psych Narrative: Very pleasant, eye contact is good, patient interacts appropriately Results Lab / Micro Data 11/10/23 08:53 11/10/23 08:53 Labs: Laboratory Results - last 24 hr 11/10/23 08:53: WBC 13.2 H, RBC 5.42, Hgb 16.2, Hct 50.9, MCV 93.9, MCH 29.9, MCHC 31.8 L, RDW Std Deviation 44.1 H, RDW Coeff of Kosta 12.9, Plt Count 228, MPV 10.1, Immature Gran % (Auto) 0.800, Neut % (Auto) 62.4, Lymph % (Auto) 21.8, [place] % (Auto) 11.4 H, Eos % (Auto) 2.9, Baso % (Auto) 0.7, Absolute Neuts (auto) 8.2 H, Absolute Lymphs (auto) 2.87, Nucleated RBC % 0, D-Dimer Quant (PE/DVT) 12.10 H*, Sodium 141, Potassium 3.7, Chloride 109 H, Carbon Dioxide 24.0, Anion Gap 8, BUN 24 H, Creatinine 1.79 H, Est GFR (MDRD) Af Amer 48 L, Est GFR (MDRD) Non-Af 39 L, BUN/Creatinine Ratio 13.4, Glucose 150 H, Calcium 9.7, Troponin I High Sens 131 H*, B-Natriuretic Peptide 241.5 H 11/10/23 11:15: Troponin I High Sens 354 H* Micro: Microbiology 11/10/23 08:53 Mucosa - Nose SARS-CoV-2, Influenza & RSV (PCR) - Final Rhythm Strip Rhythm Strip: Sinus Tach Rate: 111 Ectopy: None Imagaing Radiology Impression Chest X-Ray 11/10/23 09:36 IMPRESSION: Normal x-ray examination of the chest. Electronically Signed: Duran Robbins MD at 10:24 EST , Chest CTA 11/10/23 13:06 IMPRESSION: Extensive bilateral PE noted. There low-density filling defects within the mid and distal aspects of the main pulmonary arteries with extension into all 5 pulmonary lobes and there branches, sagittal embolus noted at the bifurcation of the mid and lower lobe branches. There is flattening of the interventricular septum and reflux of contrast into the IVC concerning for right heart strain Lingular atelectasis Degenerative bony changes Electronically Signed: Duran Robbins MD at 14:07 EST , Assessment & Plan Assessment/Plan (1) Pulmonary emboli: (2) Hypoxia: (3) Elevated troponin: (4) Acute dyspnea: (5) Leukocytosis: (6) Stage 3b chronic kidney disease (CKD): (7) Elevated brain natriuretic peptide (BNP) level: (8) Hyperglycemia: PLAN: Plan Acute hypoxia and dyspnea secondary to submassive PE -CTA of the chest shows PE in the mid and distal aspects of right and left main pulmonary arteries with extension to all 5 pulmonary lobes with subtle emboli noted across the right mid and lower lobe pulmonary arteries as well as filling defects noted through multiple branches of the right middle upper and lower lobe pulmonary arteries and the left upper and lower lobe pulmonary arteries, evidence of right heart strain with flattening of the interventricular septum and reflux of contrast into the IVC -Hypercoag panel obtained prior to initiating heparin -Patient with no risk factors -Patient has not had complete screening for malignancies(no PSA in 2 years, never had a colonoscopy) -Heparin drip with bolus initiated -Will run heparin drip for 24 hours then transition to Eliquis 10 mg p.o. twice daily x 7 days then 5 mg following -Check echocardiogram -COVID and flu are negative -Check lower extremity Dopplers -Check COVID PCR with unclear etiology for PE--> patient states his granddaughters had COVID about 2 weeks ago but he never had any symptoms -Will have patient follow-up with pulmonary medicine and hematology after discharge -Continue supplemental oxygen as needed--> currently stable on 2 L -Wean oxygen as able and will check ambulatory pulse ox prior to discharge Elevated troponin -Suspect related to submassive PE as noted above -Patient denied any chest pain -EKG is consistent with acute PE with S1Q3T3 -Check echocardiogram -There is evidence of right heart strain on the CTA of the chest Elevated BNP -Again suspect related to right heart strain from PE -Echocardiogram is pending -Patient stable we will hold off on diuretics now as received contrast in the setting of CKD stage IIIb Leukocytosis -Suspect reactive due to large clot burden -Repeat in a.m. -No signs or symptoms consistent with infection Hyperglycemia -Nonfasting blood sugars 130 -Check hemoglobin A1c CKD stage IIIb -Serum creatinine appears to run between 1.4 and 1.8 -Serum creatinine on presentation was 1.79 -Patient did receive IV contrast with a estimated GFR around 40 -Monitor closely for any contrast-induced nephropathy -Will hold on any IV fluids at this time due to heart strain noted on CTA of the chest related to clot burden M?ni?re's disease -Patient with intermittent vertigo -Recommend outpatient follow-up with ENT DVT prophylaxis -Full anticoagulation with heparin drip CODE STATUS -Full code Charges/Coding Visit Charges Inpatient E&M: 42396 Init Hosp L2
[2023-11-10 15:02] LABS: International Normalized Ratio 1.1; Prothrombin Time (Protime)PT. 13.7 SECONDS (11.7-14.9)
[2023-11-10 15:03] LABS: Partial Thromboplast Time 29.5 Seconds (24.1-36.2)
[2023-11-10] MEDS: Heparin Injection (Vial) 5,000 UNIT/ML VIAL 4500 UNIT IV (15:16)
[2023-11-10] MEDS: HEPARIN/D5w 25,000 UNITS 25,000 UNITS/250 ML IV.SOLN. 10 UNITS CONT INF (15:16)
--- NOTE | 2023-11-10 15:44 | ECHOD_ITS ---
Reason For Study: Emboli Procedure This was a 2D Doppler, Color Flow transthoracic echocardiogram. Myocardial strain analysis was performed in this exam to aid in the assessment of cardiac function. Exam performed portable in patient room. Left Ventricle Normal LV size. Mild concentric left ventricular hypertrophy. The left ventricular ejection fraction is 65 %. Stage 1 diastolic dysfunction. Right Ventricle Mildly dilated right ventricle. Normal systolic function. Atria Normal left atrium. The right atrium is moderately enlarged. Mitral Valve Mild (1+) posteriorly directed mitral valve insufficiency. Tricuspid Valve Moderate to severe eccentric tricuspid valve insufficiency. Right ventricular systolic pressure estimated to be 72 mmHg. Severe pulmonary hypertension. Aortic Valve Trisinus/trileaflet aortic valve. Pulmonic Valve The pulmonic valve is not well visualized. Great Vessels Normal sized aortic root. Pericardium/Pleural No pericardial effusion. MMode/2D Measurements & Calculations LVIDd: 3.4 cm IVSd: 1.1 cm Ao root diam: 2.7 cm LVIDs: 1.8 cm LVPWd: 1.2 cm RVDd: 4.7 cm FS: 46.7 % LAV(MOD-bp): 21.2 ml LVAd ap4: 20.1 cm2 SV(MOD-sp4): 29.0 ml LAV(MOD-bp) Indexed: 11.5 ml/m2 LVLd ap4: 7.2 cm LAV(MOD-sp2): 25.7 ml EDV(MOD-sp4): 45.7 ml LAV(MOD-sp4): 15.3 ml EDV(sp4-el): 47.4 ml LVAs ap4: 10.3 cm2 LVLs ap4: 6.0 cm ESV(MOD-sp4): 16.7 ml ESV(sp4-el): 15.0 ml EF(MOD-sp4): 63.5 % EF(sp4-el): 68.4 % SV(sp4-el): 32.4 ml LA A4 area: 9.9 cm2 LA dimension(2D): 3.0 cm RA A4 area: 17.1 cm2 TAPSE: 2.9 cm Time Measurements MV dec time: 0.22 sec Doppler Measurements & Calculations MV E max tomi: 49.7 cm/sec Lat Peak E' Tomi: 8.7 cm/sec Med Peak E' Tomi: 8.5 cm/sec MV A max tomi: 72.0 cm/sec E/E' lat: 5.7 E/E' med: 5.9 MV E/A: 0.69 Ao V2 max: 113.1 cm/sec LV V1 max: 106.2 cm/sec MV dec slope: 225.7 cm/sec2 Ao max P.1 mmHg LV V1 max P.5 mmHg Ao V2 mean: 88.1 cm/sec Ao mean P.3 mmHg Ao V2 VTI: 20.1 cm PA V2 max: 81.6 cm/sec TR max tomi: 376.1 cm/sec TR max P.6 mmHg ECHO/Echo Complete Interpretation Summary Mild concentric left ventricular hypertrophy. The left ventricular ejection fraction is 65 %. Stage 1 diastolic dysfunction. Mildly dilated right ventricle. The right atrium is moderately enlarged. Mild (1+) posteriorly directed mitral valve insufficiency. Moderate to severe eccentric tricuspid valve insufficiency. Right ventricular systolic pressure estimated to be 72 mmHg. Severe pulmonary hypertension. Ordering Physician: Susan Hoyt Referring Physician: William Crespo Performed By: Radha Guy, SHYANNE, RVT
--- NOTE | 2023-11-10 15:44 | VDLE_ITS ---
Reason For Study: Pulmonary Embolism RIGHT LEFT GSV is normal. GSV is normal. CFV is compressible, spontaneous, phasic, CFV is compressible, spontaneous, phasic, competent and demonstrates normal competent, and demonstrates normal augmentation. augmentation. FV is compressible, spontaneous, phasic, Lt FV, Lt PopV, Lt T/P Trunk, Lt PTV, Lt competent and demonstrates normal PeroV, and Lt SoleusV are dilated and NON augmentation. COMPRESSIBLE consistent with acute DVT POP V is compressible, spontaneous, phasic, Heterogeneous, non vascular structure noted competent and demonstrates normal Lt Pop Fossa measuring 2.93cm x 2.79cm. augmentation. T/P Trunk is compressible. PTV is compressible. RT PerV is compressible. Hypoechoic, non vascular structure noted Rt Pop Fossa measuring 1.88cm x 0.78cm. Procedure This is a venous duplex using B-mode, color flow and spectral Doppler. Exam performed portable in patient room. A preliminary report was called and/or faxed to Patient's RN. VL/Venous Duplex US - Abiel Extrem Interpretation Summary Acute deep vein thrombosis is noted in the left femoral vein, popliteal vein, t ibioperoneal trunk vein, posterior tibial vein, peroneal vein, soleus vein. Deep veins of the right lower extremity are patent and compressible segmentally . There is no evidence of right lower extremity deep vein thrombosis. The bilateral great sap henous veins appear patent and compressible segmentally. Hypoechoic, non vascular structure noted rightt popliteal fossa measuring 1.88c m x 0.78cm. Heterogeneous, non vascular structure noted left popliteal fossa measuring 2.93 cm x 2.79cm. Ordering Physician: Susan Hoyt Referring Physician: William Crespo Performed By: Radha Guy, SHYANNE, RVT
[2023-11-10 17:16] LABS: Troponin-I HS 353 pg/mL (3.0-78.0)
[2023-11-10 17:19] LABS: Hemoglobin A1c 5.7 % (3.8-5.6)
[2023-11-10 21:36] LABS: Partial Thromboplast Time 88.1 Seconds (24.1-36.2)
[2023-11-11] VITALS (8 sets, daily range): BP systolic 104–131; BP diastolic 69–90; PULSE 85–96; RESP 16–19; TEMP 36.6–36.9; O2SAT 88–96
[2023-11-11 04:13] LABS: Hematocrit 47.3 % (40-54); Hemoglobin 15.5 g/dL (13.0-16.5); Mean Corp Hgb Conc 32.8 g/dL (32-36); Mean Corpuscular Hgb 29.9 pg (27.0-32.0); Mean Corpuscular Volume 91.3 fL (80-94); Mean Platelet Vol. 9.8 fl (6.2-12.0); Platelet Count 175 K/mm3 (150-450); RBC Distribution Width CV 12.8 % (11.6-14.6); RBC Distribution Width SD 42.7 fl (35.1-43.9); Red Blood Count 5.18 M/mm3 (4.6-6.2); White Blood Count 9.5 K/mm3 (4.4-11.0)
[2023-11-11 04:37] LABS: Prothrombin Time (Protime)PT. 13.7 SECONDS (11.7-14.9)
[2023-11-11 04:53] LABS: Anion Gap 9 (5-15); BUN 21 mg/dL (7-18); BUN/Creat Ratio 12.3 RATIO (10-20); Calcium,Total 8.8 mg/dL (8.5-10.1); Chloride 111 mmol/L (98-107); Creatinine, Serum 1.71 mg/dL (0.70-1.30); EST Glomerular Filtration Rate 42 mL/min (>60); Est Glom Filt Rate - Afr Amer 50 mL/min (>60); Estimated Creatinine Clearance 36.13 ml/min; Glucose 108 mg/dL (74-106); Magnesium 2.1 mg/dL (1.6-2.6); Phosphorus 3.1 mg/dL (2.5-4.9); Potassium 4.3 mmol/L (3.5-5.1); Sodium Level 142 mmol/L (136-145); Thyroid Stim Hormone (TSH) 3.13 uIU/mL (0.358-3.74)
[2023-11-11] MEDS: Acetaminophen 325 MG Tablet 650 MG PO (09:09)
[2023-11-11 10:22] LABS: Partial Thromboplast Time 60.4 Seconds (24.1-36.2)
[2023-11-11] MEDS: Sodium Chloride 0.65% 1 SPRAY SPRAY.BTL 2 SPRAY NASAL (11:15)
--- NOTE | 2023-11-11 12:20 | CASEMGMT ---
JASON ECKERT Assessment: Face to Face with pt for initial transition planning/care coordination assessment. RN BABAR introduced self and role at [facility], pt voices understanding and consents to assessment. Pt is A&O x4 and answers all questions appropriately at this time. Pt sitting up in bed with oxygen on in no distress with , dtr and granddtr at bedside. Care providers, pharmacy, and demographics verified/updated. Admitting Dx: dyspnea, elevated troponin, hypoxia PCP:Rehana Man Specialists:Pt denies Preferred [facility]acy:[facility] Insurance: Fabiano TURCIOS Prescription Benefit: yes LNOK: Faith Turk, Living Arrangements: Pt lives with in a single story home with 2 steps to enter. Pt reports he is I in ADL's and denies concerns at home. Transportation: Pt drives self and denies concerns with transportation. DME:Pt does not use any DME but has 2 of the following: shower chairs, canes, w/c, FWW HHC/SNF: Pt denies hx of Pt states no concerns with going home at time of dc. Pt to be dc'd on eliquis. Provided pt with eliquis savings card and explanation given for use. Discussed the potential need for oxygen with patient and homegoing oxygen instructions. Pt aware that [employer] delivers on the weekends and is agreeable to this. Pt is able to afford a pox. Pt denies any need for HHC at this time. Pt states no further concerns/needs. CM to follow. Advised pt to ask CM if any further question/concerns/needs arise, voices understanding. Pt Goal: Home Plan: Home, follow for oxygen, green sheet on chart.
--- NOTE | 2023-11-11 14:32 | PN.HOSP_ITS ---
Reason for Visit Reason for Visit: Shortness of breath with exertion Subjective Subjective Patient states he feels great and wants to go home. We discussed leaving him on heparin for another 24 hours and then transitioning to Eliquis. Objective Data Objective Data Vital Signs: Vital Signs Temp Pulse Resp BP Pulse Ox O2 Del Method O2 Flow Rate 97.9 F 96 17 131/90 H 95 Nasal Cannula 2 11/11/23 09:14 11/11/23 09:14 11/11/23 09:14 11/11/23 09:14 11/11/23 09:38 11/11/23 09:38 11/11/23 09:38 Oxygen Flow Rate (L/min) 2 Oxygen Delivery Method Nasal Cannula Weight: 69.5 kg Body Mass Index (BMI) 22.2 Intake & Output: Intake and Output for Last 24 Hours 11/09/23 11/10/23 11/11/23 23:59 23:59 23:59 Intake Total 68.83 / 68.83 720 / 720 Balance 68.83 / 68.83 720 / 720 Lab / Micro Data 11/11/23 04:07 11/11/23 04:07 Labs: Laboratory Results - last 24 hr 11/10/23 14:30: PT 13.7, INR 1.1, APTT 29.5 11/10/23 16:30: Hemoglobin A1c 5.7 H, Troponin I High Sens 353 H* 11/10/23 21:20: APTT 88.1 H 11/11/23 04:07: WBC 9.5, RBC 5.18, Hgb 15.5, Hct 47.3, MCV 91.3, MCH 29.9, MCHC 32.8, RDW Std Deviation 42.7, RDW Coeff of Kosta 12.8, Plt Count 175, MPV 9.8, PT 13.7, INR 1.0, APTT 62.0 H, Sodium 142, Potassium 4.3, Chloride 111 H, Carbon Dioxide 22.0, Anion Gap 9, BUN 21 H, Creatinine 1.71 H, Estim Creat Clear Calc 36.13, Est GFR (MDRD) Af Amer 50 L, Est GFR (MDRD) Non-Af 42 L, BUN/Creatinine Ratio 12.3, Glucose 108 H, Calcium 8.8, Phosphorus 3.1, Magnesium 2.1, TSH 3.13 11/11/23 09:50: APTT 60.4 H Micro: Microbiology 11/10/23 13:30 Mucosa - Nasopharyngeal Respiratory Panel (PCR) - Final 11/10/23 08:53 Mucosa - Nose SARS-CoV-2, Influenza & RSV (PCR) - Final Radiography Diagnostic Testing: Radiology Impression Chest CTA 11/10/23 13:06 IMPRESSION: Extensive bilateral PE noted. There low-density filling defects within the mid and distal aspects of the main pulmonary arteries with extension into all 5 pulmonary lobes and there branches, sagittal embolus noted at the bifurcation of the mid and lower lobe branches. There is flattening of the interventricular septum and reflux of contrast into the IVC concerning for right heart strain Lingular atelectasis Degenerative bony changes Electronically Signed: Duran Robbins MD at 14:07 EST , ADDENDUM: 11/10/23 1428 IMPRESSION: Extensive bilateral PE noted. There low-density filling defects within the mid and distal aspects of the main pulmonary arteries with extension into all 5 pulmonary lobes and there branches, sagittal embolus noted at the bifurcation of the mid and lower lobe branches. There is flattening of the interventricular septum and reflux of contrast into the IVC concerning for right heart strain Lingular atelectasis Degenerative bony changes N.B. : The above Results were Read Back by Duran Robbins MD to Susan Hoyt DO, and understanding confirmed on 11/10/2023 14:21:19 (ET). Electronically Signed: Duran Robbins MD at 14:07 EST , ADDENDUM: 11/10/23 1433 IMPRESSION: Extensive bilateral PE noted. There low-density filling defects within the mid and distal aspects of the main pulmonary arteries with extension into all 5 pulmonary lobes and there branches, sagittal embolus noted at the bifurcation of the mid and lower lobe branches. There is flattening of the interventricular septum and reflux of contrast into the IVC concerning for right heart strain Lingular atelectasis Degenerative bony changes N.B. : The above Results were Read Back by Duran Robbins MD to Susan Hoyt DO, and understanding confirmed on 11/10/2023 14:26:42 (ET). Electronically Signed: Duran Robbins MD at 14:07 EST Reading Location ID and State: [facility] , Service support , Echocardiogram 11/10/23 15:44 Interpretation Summary Mild concentric left ventricular hypertrophy. The left ventricular ejection fraction is 65 %. Stage 1 diastolic dysfunction. Mildly dilated right ventricle. The right atrium is moderately enlarged. Mild (1+) posteriorly directed mitral valve insufficiency. Moderate to severe eccentric tricuspid valve insufficiency. Right ventricular systolic pressure estimated to be 72 mmHg. Severe pulmonary hypertension. Ordering Physician: Susan Hoyt Referring Physician: William Crespo Performed By: Radha Guy, SHYANNE, RVT Rhythm Strip Rhythm Strip: Sinus Tach Rate: 111 Ectopy: None Physical Exam Const alert, oriented x3, no apparent distress, average body habitus, healthy appearing and well nourished Constitutional Narrative: Very pleasant, older, white male, sitting up in bed, appears younger than stated age, ambulating back from the bathroom independently, appears comfortable, and daughter at bedside, nontoxic HEENT normocephalic, head/scalp atraumatic and moist oral mucous membranes Resp normal respiratory effort, no retractions, no use of accessory muscles and clear to auscultation bilaterally Resp Narrative: Patient without any significant respiratory distress on 2 L nasal Auscultation: Negative for rales, rhonchi or wheezes Cardio regular rate, regular rhythm, S1 normal heart sound, S2 normal heart sound, no murmurs, no rub, no gallops and no clicks GI normal to inspection, nondistended, normoactive bowel sounds, soft to palpation and non-tender Extremity no clubbing, cyanosis or edema Extremity Narrative: 2+ pedal pulses, 2+ radial pulses Neuro oriented x3, moves all extremities and no focal motor deficits Speech: speech normal Psych affect normal Psych Narrative: Very pleasant, eye contact is good, patient interacts appropriately Assessment & Plan Assessment/Plan (1) Pulmonary emboli: (2) Hypoxia: (3) Elevated troponin: (4) Acute dyspnea: (5) Leukocytosis: (6) Stage 3b chronic kidney disease (CKD): (7) Elevated brain natriuretic peptide (BNP) level: (8) Hyperglycemia: (9) Pulmonary artery hypertension: (10) Diastolic dysfunction: PLAN: Plan Acute hypoxia and dyspnea secondary to submassive PE -CTA of the chest shows PE in the mid and distal aspects of right and left main pulmonary arteries with extension to all 5 pulmonary lobes with subtle emboli noted across the right mid and lower lobe pulmonary arteries as well as filling defects noted through multiple branches of the right middle upper and lower lobe pulmonary arteries and the left upper and lower lobe pulmonary arteries, evidence of right heart strain with flattening of the interventricular septum and reflux of contrast into the IVC -Hypercoag panel obtained prior to initiating heparin -Patient with no risk factors -Patient has not had complete screening for malignancies(no PSA in 2 years, never had a colonoscopy) -Continue heparin drip until tomorrow -transition to Eliquis 10 mg p.o. twice daily x 7 days then 5 mg following tomorrow -Echocardiogram shows an EF of 65% with stage I diastolic dysfunction, mildly dilated RV with severe pulmonary hypertension at 72 mmHg and moderate to severe eccentric tricuspid valve insufficiency -COVID and flu are negative -COVID PCR is unremarkable/respiratory viral panel is negative -Continue supplemental oxygen as needed--> patient required up titration to 4 L however now weaned back down to 2 L at 95% on room air -Wean oxygen as able and will check ambulatory pulse ox prior to discharge--> will check tomorrow morning Elevated troponin -Suspect related to submassive PE as noted above -Patient denied any chest pain -EKG is consistent with acute PE with [id number] -No wall motion abnormality on echocardiogram Elevated BNP -Secondary to RV strain Pulmonary hypertension -Right ventricular systolic pressure on echo was 76 mmHg with mild RV dilation -Secondary to PE -Hypertension is severe -Will refer patient to pulmonary medicine after discharge so they can keep an eye on his pulmonary hypertension and repeat an echocardiogram Leukocytosis -Resolved Hyperglycemia -Nonfasting blood sugars 130 -A1c is 5.7 CKD stage IIIb -Serum creatinine appears to run between 1.4 and 1.8 -Serum creatinine on presentation was 1.79--> currently 1.71 stable despite contrast -Patient did receive IV contrast with a estimated GFR around 40 -Monitor closely for any contrast-induced nephropathy M?ni?re's disease -Patient with intermittent vertigo -Recommend outpatient follow-up with ENT DVT prophylaxis -Full anticoagulation with heparin drip CODE STATUS -Full code Charges/Coding Visit Charges Inpatient E&M: 54486 Subs Hosp L2
[2023-11-11] MEDS: HEPARIN/D5w 25,000 UNITS 25,000 UNITS/250 ML IV.SOLN. 9 UNITS CONT INF (17:12)
[2023-11-11 23:21] LABS: Partial Thromboplast Time 54.6 Seconds (24.1-36.2)
[2023-11-12 06:50] LABS: Absolute Lymphocyte Count 1.11 X10^3/uL (0.83-4.51); Absolute Neutrophil Count 6.2 X10^3/uL (2.0-7.7); Basophil# 0.03 X10^3/uL; Basophil% 0.4 % (0-1); Eosinophil# 0.16 X10^3/uL; Eosinophils% 1.9 % (0-5); Hematocrit 42.1 % (40-54); Hemoglobin 13.7 g/dL (13.0-16.5); Lymphocyte # 1.11 X10^3/ul (0.83-4.51); Lymphocyte % 13.2 % (19-41); Mean Corp Hgb Conc 32.5 g/dL (32-36); Mean Corpuscular Hgb 29.8 pg (27.0-32.0); Mean Corpuscular Volume 91.7 fL (80-94); Mean Platelet Vol. 10.2 fl (6.2-12.0); Monocyte# 0.84 X10^3/uL; NRBC Flagged by Analyzer 0 % (0-5); Neutrophil # 6.21 X10^3/uL (2.7-7.7); Neutrophil % 73.8 % (47-70); Platelet Count 176 K/mm3 (150-450); RBC Distribution Width SD 43.1 fl (35.1-43.9); Red Blood Count 4.59 M/mm3 (4.6-6.2); White Blood Count 8.4 K/mm3 (4.4-11.0)
[2023-11-12 07:21] LABS: Anion Gap 5 (5-15); BUN 22 mg/dL (7-18); BUN/Creat Ratio 15.5 RATIO (10-20); Chloride 111 mmol/L (98-107); Creatinine, Serum 1.42 mg/dL (0.70-1.30); EST Glomerular Filtration Rate 51 mL/min (>60); Est Glom Filt Rate - Afr Amer 62 mL/min (>60); Estimated Creatinine Clearance 43.51 ml/min; Glucose 106 mg/dL (74-106); Partial Thromboplast Time 59.4 Seconds (24.1-36.2); Potassium 4.1 mmol/L (3.5-5.1); Sodium Level 141 mmol/L (136-145)
[2023-11-12 07:56] VITALS: O2SAT 94
[2023-11-12 09:00] VITALS: BP 108/77; PULSE 86; RESP 18; TEMP 36.6; O2SAT 94
--- NOTE | 2023-11-12 09:03 | PCM.DC.SUM ---
Providers Date of Admission: 11/10/23 Date of Discharge: 11/12/23 Primary Care Physician: Dr. Sandip Crespo MD Reason For Visit: DYSPNEA, ELEVATED TROPONIN, HYPOXIA Diagnosis Discharge Diagnosis (1) Pulmonary emboli: Status: Acute Code(s): I26.99 - Other pulmonary embolism without acute cor pulmonale (2) Hypoxia: Status: Acute Code(s): R09.02 - Hypoxemia (3) Elevated troponin: Status: Acute Code(s): R79.89 - Other specified abnormal findings of blood chemistry (4) Acute dyspnea: Status: Acute Code(s): R06.00 - Dyspnea, unspecified (5) Leukocytosis: Status: Acute Code(s): D72.829 - Elevated white blood cell count, unspecified (6) Stage 3b chronic kidney disease (CKD): Status: Inactive Code(s): N18.32 - Chronic kidney disease, stage 3b (7) Elevated brain natriuretic peptide (BNP) level: Status: Acute Code(s): R79.89 - Other specified abnormal findings of blood chemistry (8) Hyperglycemia: Status: Acute Code(s): R73.9 - Hyperglycemia, unspecified (9) Pulmonary artery hypertension: Status: Acute Code(s): I27.21 - Secondary pulmonary arterial hypertension (10) Diastolic dysfunction: Status: Acute Code(s): I51.89 - Other ill-defined heart diseases Medications at Discharge Home Medications meclizine 25 mg tablet 25 mg PO 4X/DAY PRN PRN Dizziness #20 tabs 02/25/23 acetaminophen 325 mg capsule 650 mg PO DAILY knee pain 11/10/23 acetaminophen 650 mg tablet,extended release (8 Hour Pain Reliever) 1,300 mg PO DAILY PRN knees 11/11/23 apixaban 5 mg tablet (Eliquis) 5 mg PO BID #67 tabs 11/12/23 Hospital Course Operations None Procedures 2-D Echocardiogram, EKG and - (Chest x-ray/CTA chest/bilateral lower extremity Dopplers) Summary of Care Provided Minutes Spent on Discharge: 40 Hospital Course: Mr. Turk is a 77 M who presented to the emergency department at [facility] on 11/10/2023. Patient states he had been in his usual state of health up until today. He noticed when he was going down the stairs into the basement he got a little more short of breath and he has typically ever gotten and then when he was coming up the stairs he got markedly short of breath. He states this is very atypical for him and he is never had this before. He reported he did the stairs yesterday without any difficulty. He has had no recent travel, surgeries, prolonged sitting experiences and no family history of VTE. He is not up-to-date on his cancer screening and it has been at least 2 years since he had a PSA and has never had a colonoscopy. Vital signs on presentation showed a temperature of 98.2, heart rate 118, blood pressure was 118/94 respiratory rate was 19 and oxygen saturation was 88% on room air. Saturations improved to 82% with 2 L supplemental nasal cannula. His CBC showed a mild leukocytosis with a white count of 13.2 but no left shift. There was a monocytosis at 11.4% monocytes. His BMP showed normal electrolytes with a BUN of 24 and a creatinine of 1.79 (baseline creatinine appears to run between 1.4 and 1.8), his glucose was 150. His troponin was 131 with a repeat at 354. I was called for admission and added on a D-dimer and a BNP his BNP was elevated at 241.5 and his D-dimer was 12 so I obtained a CTA of the chest. His initial chest x-ray was unremarkable. CTA of the chest showed marked PE noted in the mid and distal aspects of the left and right main pulmonary arteries with extension into all 5 pulmonary lobes as well as subtle emboli noted in the right mid and lower lobe, left mid and lower lobe and right mid upper and lower lobe, left upper and lower lobe. There was evidence of heart strain with broadening of the interventricular septum and reflux of contrast into the IVC. His EKG showed typical PE pattern with S1Q3T3. He was started on a heparin drip with a bolus in the emergency department and transferred to PCU for ongoing cardiac monitoring in the setting of submassive pulmonary emboli that were bilateral. We did maintain him on a heparin drip for about 36 hours and then transition him to Eliquis 10 mg twice daily for 7 days and then 5 mg twice daily to follow. He was given his first dose of Eliquis prior to discharge from the hospital. We also gave him a prescription card for this and he was going to call the [place] tomorrow to discuss with them options for anticoagulation long-term as he was unclear if this was on the prescription plan. 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 He also was found to have mild mitral valve insufficiency and moderate to severe eccentric tricuspid valve insufficiency. He was maintained on supplemental oxygen until the day of discharge and a ambulatory pulse ox was measured at the time of discharge. He was satting 94% on room air at rest and only desatted to 89% with exertion and therefore did not qualify for supplemental oxygen. He was advised that his exercise tolerance may be less than typical for him based on the size of his clot and his pulmonary hypertension and this will persist until his clot starts to reabsorb. We also did obtain lower extremity Dopplers and a DVT was found in the left proximal femoral artery all the way down to his calf. The etiology for his clotting is unclear. He did not have any risk factors on presentation and has no family history. I did obtain a hypercoagulable panel prior to initiation of heparin and admission and this is pending at the time of discharge. We also did discuss that undiagnosed malignancy could be the etiology. He is not up-to-date on his cancer screening. I have advised him to follow-up with his primary care physician as well as Dr. Vasquez for further evaluation of the etiology of his clotting. I also have asked him to follow-up with pulmonary medicine for his pulmonary hypertension related to his thromboembolic disease. The patient was able to be discharged home in stable condition on room air with a prescription for Eliquis for the next 30 days on 11/12/2023. Again [facility] for [facility]quis and indicated he would do so tomorrow on 11/13/2023. Discharge diagnoses: Acute hypoxia Dyspnea Acute submassive pulmonary emboli bilaterally Troponin elevation Elevated BNP Pulmonary hypertension-severe Tricuspid valve insufficiency Diastolic dysfunction stage I Leukocytosis-resolved Hyperglycemia-A1c was 5.7 CKD stage IIIb-stable M?ni?re's disease Physical Exam Const alert, oriented x3, no apparent distress, average body habitus, no limitations, healthy appearing and well nourished Constitutional Narrative: Very pleasant, older, white male, sitting up in a chair at the bedside appears younger than stated age, watching television, appears comfortable, nontoxic General Appearance: cooperative, comfortable, well kempt and well developed Orientation / Consciousness: awake, oriented to person, oriented to place and oriented to time Exam Limitations: no limitations HEENT normocephalic, head/scalp atraumatic and moist oral mucous membranes HEENT Narrative: Moderate hearing loss, Mallampati is 2, no thrush, dentition is good for age Eyes PERRL, EOMs intact bilaterally and conjunctivae normal Eyes Narrative: No scleral icterus Neck no lymphadenopathy and supple Neck Narrative: Trachea midline, no thyroid enlargement Resp normal respiratory effort, no retractions, no use of accessory muscles and clear to auscultation bilaterally Resp Narrative: Comfortable breathing on room air Auscultation: Negative for rales, rhonchi or wheezes Cardio regular rate, regular rhythm, S1 normal heart sound, S2 normal heart sound, no murmurs, no rub, no gallops and no clicks GI normal to inspection, nondistended, normoactive bowel sounds, soft to palpation and non-tender Extremity no clubbing, cyanosis or edema Extremity Narrative: 2+ pedal pulses, 2+ radial pulses Skin no rashes or lesions noted, no wounds, skin turgor normal, no jaundice, no petechiae and no mottling Neuro oriented x3, CN's II-XII intact bilaterally, moves all extremities, no focal motor deficits and no sensory deficits noted Speech: speech normal Motor Exam: strength 5/5 throughout Psych affect normal Psych Narrative: Very pleasant, eye contact is good, patient interacts appropriately Weight / BMI Weight Weight: 69.5 kg Body Mass Index (BMI) 22.2 ABG / Lab / Microbiology Data 11/12/23 05:34 11/12/23 05:34 Laboratory: Laboratory Results - last 24 hr 11/11/23 09:50: APTT 60.4 H 11/11/23 17:20: APTT 63.0 H 11/11/23 22:48: APTT 54.6 H 11/12/23 05:34: WBC 8.4, RBC 4.59 L, Hgb 13.7, Hct 42.1, MCV 91.7, MCH 29.8, MCHC 32.5, RDW Std Deviation 43.1, RDW Coeff of Kosta 13.0, Plt Count 176, MPV 10.2, Immature Gran % (Auto) 0.700, Neut % (Auto) 73.8 H, Lymph % (Auto) 13.2 L, Story % (Auto) 10.0, Eos % (Auto) 1.9, Baso % (Auto) 0.4, Absolute Neuts (auto) 6.2, Absolute Lymphs (auto) 1.11, Nucleated RBC % 0, APTT 59.4 H, Sodium 141, Potassium 4.1, Chloride 111 H, Carbon Dioxide 25.0, Anion Gap 5, BUN 22 H, Creatinine 1.42 H, Estim Creat Clear Calc 43.51, Est GFR (MDRD) Af Amer 62, Est GFR (MDRD) Non-Af 51 L, BUN/Creatinine Ratio 15.5, Glucose 106, Calcium 9.0 Microbiology: Microbiology 11/10/23 13:30 Mucosa - Nasopharyngeal Respiratory Panel (PCR) - Final 11/10/23 08:53 Mucosa - Nose SARS-CoV-2, Influenza & RSV (PCR) - Final Radiography Diagnostic Testing: Radiology Impression Echocardiogram 11/10/23 15:44 Interpretation Summary Mild concentric left ventricular hypertrophy. The left ventricular ejection fraction is 65 %. Stage 1 diastolic dysfunction. Mildly dilated right ventricle. The right atrium is moderately enlarged. Mild (1+) posteriorly directed mitral valve insufficiency. Moderate to severe eccentric tricuspid valve insufficiency. Right ventricular systolic pressure estimated to be 72 mmHg. Severe pulmonary hypertension. Ordering Physician: Susan Hoyt Referring Physician: William Crespo Performed By: Radha Guy, SHYANNE, RVT D/C Instructions Discharge Diet: No restrictions Discharge Activity: Return to Normal Activity Meaningful Use Info Meaningful Use Diagnoses (Choose all that apply): VTE VTE Anticoag overlap given w/in hospital stay or rx'd at dc?: Yes Pt receive overlap for 5 days?: Yes Discharge Plan Admission Admit Date/Time: 11/10/23 14:11 Primary Reason for Your Visit: Shortness of Breath with exertion Attending Provider: Susan Hoyt Primary Care Provider: Sandip Crespo Instructions Additional Instructions / Restrictions: 1. Please continue Eliquis without interruption of treatment and call [facility] to discuss options after the first month of treatment and see if they have assistance for this medication 2. You did not require oxygen at rest or with exertion. You may have increased shortness of breath with exertion for some time until the clots start to reabsorb and your pulmonary hypertension improves. Please remember this and adjust your physical activity accordingly. 3. Please call for appointments as noted below on 11/13/2023 Discharge Orders/Prescriptions Prescriptions: New Eliquis 5 mg tablet 5 mg PO BID Qty: 67 0RF Rx Instructions: 2 tablets twice daily x 6 days and then decrease dose of 1 tablet twice daily First dose will be this evening Continued meclizine 25 mg tablet 25 mg PO 4X/DAY PRN PRN (Reason: Dizziness) Qty: 20 0RF acetaminophen 325 mg capsule 650 mg PO DAILY acetaminophen [8 Hour Pain Reliever] 650 mg tablet extended release 1,300 mg PO DAILY PRN (Reason: knees) Referrals / Follow Up: Wang Roblero MD [Med Staff - Active Staff] - See Referral Note (call tomorrow to schedule an appointment to be seen at first availability for pulmonary hypertension due to pulmonary emboli) Sandip Crespo MD [Primary Care Provider] - Within 1 Week Morales Vsaquez DO [Med Staff - Active Staff] - See Referral Note (Call tomorrow to set up an appointment to be seen at Dr. Vasquez's first availability for submassive pulmonary emboli and DVT) Disposition Disposition (needs filled in before D/C Order can be placed): Home, Self Care Charges/Coding Visit Charges Inpatient E&M: 97023 Disch Hosp >30min
[2023-11-12 09:11] VITALS: O2SAT 89; O2SAT 94
[2023-11-12] MEDS: APIXABAN 5 MG TABLET 10 MG PO (10:52)
[2023-11-12 11:19] VITALS: BP 108/77; PULSE 86; RESP 18; TEMP 36.6; O2SAT 94
[2023-11-22 16:09] LABS: Anti-Cardiolipin Ab, IgG, Qn < 9 GPL U/mL (0-14); Anti-Cardiolipin Ab, IgM, Qn < 9 MPL U/mL (0-12); Anti-Thrombin 3 AG, Immunol 101 % (72-124); Antithrombin 3 Function 115 % (75-135); Beta-2-Glycoprotein I IgA 10 (0-25); Beta-2-Glycoprotein I IgG <9 (0-20); Beta-2-Glycoprotein I IgM <9 (0-32); Protein C Antigen 101 % (60-150); Protein C, Functional 108 % (73-180)
== END 2023-11-12 12:42 | disposition home or self-care (01) | DRG 175 ==
LOC: ED 12:10 → PCU 12:39
PROVIDERS: Admitting Provider Internal Medicine; Emergency Provider Emergency Medicine; PCP Family Medicine; Visit Provider Internal Medicine
DX: I26.09 Other pulmonary embolism with acute cor pulmonale (principal); I82.412 Acute embolism and thrombosis of left femoral vein; I82.4Z2 Acute embolism and thrombosis of unspecified deep veins of left distal lower extremity; I27.20 Pulmonary hypertension, unspecified; N18.32 Chronic kidney disease, stage 3b; I12.9 Hypertensive chronic kidney disease with stage 1 through stage 4 chronic kidney disease, or unspecified chronic kidney disease; I08.1 Rheumatic disorders of both mitral and tricuspid valves; H81.09 Meniere's disease, unspecified ear; R09.02 Hypoxemia; R73.9 Hyperglycemia, unspecified; Z11.52 Encounter for screening for COVID-19; Z79.899 Other long term (current) drug therapy
CPT/HCPCS: 36415; 71045; 71275; 80048; 81240; 81241; 83036; 83735; 83880; 84100; 84443; 84484; 85025; 85027; 85300; 85301; 85302; 85303; 85379; 85610; 85730; 86146; 86147; 87631; 87633; 93005; 93306; 93970; 94668; 99252; 99285; Q9967; A4216; G0463

== ENCOUNTER 2023-11-29 23:55 | Emergency (ER) | payer MEDICARE, BC, SELFPAY ==
[2023-11-29 23:57] VITALS: BP 136/91; PULSE 75; RESP 18; TEMP 36.5; O2SAT 98; BMI 24.0
--- NOTE | 2023-11-30 00:17 | CT_ITS ---
STUDY: CT ABDOMEN AND PELVIS WITH CONTRAST REASON FOR EXAM: Male, 77 years old. LLQ pain RADIATION DOSAGE (If Supplied By Facility): CTDIvol = ( 12.96 ) mGy, DLP = ( 652.63 ) mGycm TECHNIQUE: Transaxial images were obtained from the dome of the diaphragm to the symphysis pubis without oral contrast. IV 100mL Isovue-370 was administered. Sagittal and coronal images were reconstructed. Individualized dose optimization techniques were used for this CT. COMPARISON: None. FINDINGS: The visualized lung bases are unremarkable. The visualized portions of the heart are within normal limits. The liver is fatty infiltrated. Normal gallbladder and extrahepatic biliary system. Normal spleen. Normal pancreas. Normal bilateral adrenal glands. There is right renal cortical thinning. There is no hydronephrosis. There is left renal cortical thinning. There is no hydronephrosis. There is a small cyst left kidney measuring 4.6 mm. There is a small hiatal hernia. There is mild distention of the small bowel. There is a moderate amount of stool within the colon. Within the descending colon there is a focus of wall thickening and inflammatory knife changer a segment of approximately 4.6 cm with associated diverticula. Image 74 series 2. The appendix is visualized and appears normal. Normal abdominal aorta. Normal inferior vena cava. Normal retroperitoneum. The bladder is partially distended and pushed forward by a markedly enlarged prostate measuring 6.2 x 7.3 x 7.8 cm. The prostate is filled with multiple enhancing small nodules. There is a right-sided fatty inguinal hernia. Slight dextroscoliosis of the lumbar spine. There is multilevel anterior and posterior spondylosis with multilevel disc space narrowing. There is multilevel neural foraminal narrowing. At the level L2-L3, L3-L4 L4-L5 there is moderate to severe neural foramina narrowing moderate to severe central stenosis. At L5-S1 there is a central disc osteophyte with moderate neural foramina narrowing mild to moderate central stenosis. There is degenerative change of the bilateral hip joints and SI joints. CT/Abdomen/Pelvis W IV Cont ONLY IMPRESSION: 4.5 cm segment of acute diverticulitis of the descending colon without visualized distant abscess formation. Enlarged prostate with multiple enhancing nodules. Recommend follow-up prostate laboratory values and clinical exam Small fatty inguinal hernia. No appendicitis. Mild bilateral renal cortical thinning. Mild hepatic steatosis. Advanced multilevel degenerative change of the thoracolumbar spine. Electronically Signed: Nesha Hawk MD at 1:16 EST ,
--- NOTE | 2023-11-30 00:18 | EDS_ITS ---
HPI HPI - GI History of Present Illness Chief Complaint: Abd Pain Informant: patient Abdominal Pain/Flank Pain Onset: Today Context: Gradual Onset Timing: Continuous Quality: Aching Location: LLQ (Without radiation) Current Severity: Moderate Maximum Severity: Moderate Worsened by: Nothing Relieved by: Nothing Nausea/Vomiting/Emesis GI Symptom: Negative for Nausea or Vomiting Diarrhea/Melena/Hematochezia GI Symptom: Negative for Diarrhea, Melena or Hematochezia Associated Symptoms Associated Symptoms: Negative for Dysuria, Frequency, Hematuria or Urgency Narrative Narrative: Patient has developed left lower quadrant abdominal discomfort tonight over the last several hours, not going away. Never had this before. No fevers or chills. No bright red blood per rectum or melena, he recently was started on apixaban because of being diagnosed with pulmonary emboli. He denies radiation into his back. No nausea or vomiting. No history of any abdominal surgeries in the past and he denies having a colonoscopy ever, he states he has one sched uled. [facility] Medical History (Updated 11/30/23 @ 02:[address] Jesus Mane MD) Blood clot in leg Diastolic dysfunction DVT (deep venous thrombosis) Hyperglycemia Stage 3b chronic kidney disease (CKD) Vertigo Home Medications meclizine 25 mg tablet 25 mg PO 4X/DAY PRN PRN Dizziness #20 tabs 02/25/23 [Rx Last Taken Unknown] acetaminophen 325 mg capsule 650 mg PO DAILY PRN knee pain 11/10/23 [History Last Taken 11/10/23] acetaminophen 650 mg tablet,extended release (8 Hour Pain Reliever) 1,300 mg PO DAILY PRN knees 11/11/23 [History Last Taken Unknown] apixaban 5 mg tablet (Eliquis) 5 mg PO BID #67 tabs 11/12/23 [Rx Last Taken Unknown] amoxicillin 875 mg-potassium clavulanate 125 mg tablet 875 mg (0.875 x 875-125 mg) PO Q12H #20 TABLETS 11/30/23 [Rx Last Taken Unknown] Allergy/AdvReac Type Severity Reaction Status Date / Time ibuprofen [From Advil] Allergy Angioedema Verified 11/29/23 23:59 naproxen [From Aleve] Allergy Angioedema Verified 11/29/23 23:59 Surgical History H/O knee surgery Social History household members: spouse housing: house current occupation: [employer] Smoking Status: Never smoker alcohol intake: never substance use type: does not use ROS ROS ED Constitutional Constitutional ED: Denies chills or fever(s) Eyes Eyes: Denies change in vision or diplopia ENT ENT ED: Denies rhinorrhea or sore throat Cardiovascular Cardiovascular: Denies chest pain or palpitations Respiratory/Chest Respiratory/Chest: Denies cough or dyspnea Gastrointestinal Gastrointestinal: Reports abdominal pain; Denies diarrhea, hematochezia, melena, nausea or vomiting Genitourinary Genitourinary ED: Denies dysuria or hematuria Musculoskeletal Musculoskeletal: Denies back pain or neck pain Integumentary Denies abscess or rash Neurologic Neurologic: Denies headache(s), paresthesias or weakness Psychiatric Psychiatric: Denies anxiety or suicidal thoughts EXAM Physical Exam Const Vital Signs: 11/29/23 23:57 Temperature 97.7 F L Temperature Source Temporal Pulse Rate 75 Respiratory Rate 18 Blood Pressure 136/91 H Blood Pressure Mean 106 Pulse Ox 98 Oxygen Delivery Method Room Air Positive well nourished and well developed General Appearance ED: well developed and NAD HEENT Reports moist mucous membranes normocephalic and atraumatic Eyes PERRL and EOMs intact bilaterally Neck full ROM and supple Resp normal respiratory effort and clear to auscultation bilaterally Cardio regular rate, regular rhythm and no murmurs GI non-distended GI Narrative: Mildly tender left lower quadrant without guarding or rebound or pulsatile mass, no other areas of tenderness. Auscultation: normoactive bowel sounds Palpation: soft Back/Spine no CVA tenderness General Back: other FROM Extremity normal to inspection General Extremety ED: Negative for edema, pulses abnormal or tenderness General Extremity: Negative for edema or pulses abnormal Neuro oriented x3, CN's II-XII intact bilaterally and no sensory deficits noted Sensorium / Orientation: awake and alert Motor Exam: strength 5/5 throughout Skin no rashes or lesions noted and no wounds MDM MDM MDM Narrative Medical decision making narrative: Differential diagnosis includes diverticulitis which is high given his age, is well as AAA, kidney stone, urine infection. Workup was performed to evaluate for for these, he has some mild renal insufficiency but could still get a contrasted scan, which shows diverticulitis in the sigmoid colon. His symptoms and exam are consistent with this. Not likely to be ischemic specially since he is on apixaban. I reviewed the images and the report of the CT and I agree with it. His urine shows no signs of infection. He was offered analgesics and declined while he was here and did well clinically. Will start him on Augmentin since he does not have any antibiotic allergies, he has an appointment with Dr. Peterson in 2 weeks approximately, to discuss/set up colonoscopy, he does not ac tually have the scope scheduled like he initially suggested. He is advised to return to the ER if he starts getting worse after 2 days of the antibiotic and not better. Otherwise take the antibiotic as prescribed and Tylenol as needed for pain he is comfortable with that plan. Lab Data Attestation: I reviewed the patient's lab results. Labs: Laboratory Results - last 24 hr 11/30/23 11/30/23 00:25 00:28 WBC 8.2 RBC 4.99 Hgb 14.9 Hct 45.4 MCV 91.0 MCH 29.9 MCHC 32.8 RDW Std Deviation 42.9 RDW Coeff of Kosta 12.9 Plt Count 278 MPV 10.4 Immature Gran % (Auto) 0.500 Neut % (Auto) 73.7 H Lymph % (Auto) 12.8 L [place] % (Auto) 9.6 Eos % (Auto) 2.8 Baso % (Auto) 0.6 Absolute Neuts (auto) 6.0 Absolute Lymphs (auto) 1.05 Nucleated RBC % 0 Sodium 139 Potassium 4.0 Chloride 113 H Carbon Dioxide 23.0 Anion Gap 3 L BUN 29 H Creatinine 1.43 H Estim Creat Clear Calc 42.52 Est GFR (MDRD) Af Amer 62 Est GFR (MDRD) Non-Af 51 L BUN/Creatinine Ratio 20.3 H Glucose 111 H Calcium 9.1 Urine Color Yellow Urine Clarity Clear Urine pH 6.0 Ur Specific [place] 1.020 Urine Protein 30 H Urine Glucose (UA) Normal Urine Ketones Negative Urine Occult Blood 25 H Urine Nitrite Negative Urine Bilirubin Negative Urine Urobilinogen Normal Ur Leukocyte Esterase Negative Urine RBC 0 SEEN Urine WBC 0 SEEN Ur Squamous Epith Cells 0 SEEN Urine Bacteria 0 SEEN Urine Mucus 0 SEEN Radiography Diagnostic Testing: Clinical Impression(s) from Imaging Studies Abdomen/Pelvis CT 11/30/23 00:17 IMPRESSION: 4.5 cm segment of acute diverticulitis of the descending colon without visualized distant abscess formation. Enlarged prostate with multiple enhancing nodules. Recommend follow-up prostate laboratory values and clinical exam Small fatty inguinal hernia. No appendicitis. Mild bilateral renal cortical thinning. Mild hepatic steatosis. Advanced multilevel degenerative change of the thoracolumbar spine. Electronically Signed: Nesha Hawk MD at 1:16 EST , Discharge Plan Triage Chief Complaint: Abd Pain ED Provider: Jesus Mane Dx/Rx/DC Orders Clinical Impression: Diverticulitis of sigmoid colon Instructions: ED Diverticulitis Prescriptions: New amoxicillin-pot clavulanate [amoxicillin-pot clavulanate] 875-125 mg tablet 875 mg PO Q12H Qty: 20 0RF No Action meclizine 25 mg tablet 25 mg PO 4X/DAY PRN PRN (Reason: Dizziness) Qty: 20 0RF acetaminophen 325 mg capsule 650 mg PO DAILY PRN (Reason: knee pain) acetaminophen [8 Hour Pain Reliever] 650 mg tablet extended release 1,300 mg PO DAILY PRN (Reason: knees) Eliquis 5 mg tablet 5 mg PO BID Qty: 67 0RF Rx Instructions: 2 tablets twice daily x 6 days and then decrease dose of 1 tablet twice daily First dose will be this evening Primary Care Provider: Sandip Crespo Referrals: Sandip Crespo MD [Primary Care Provider] - 3-5 Days if not improving Disposition Disposition: Home, Self Care
--- OUTSIDE RECORDS SUMMARY | 2023-11-30 00:29 | XMS RPT_ITS | CCD ---
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 Cnc Milling Machine Operator Name Role Phone ROZ DUENAS Referring Unavailable ROZ DUENAS Attending Unavailable Allergies Allergy Classification Reported Allergen(s) Allergy Type Date of Onset Reaction(s) Facility (1 source) Ibuprofen; Translations: [IBUPROFEN] Drug Allergy 11-27-2023 [facility] Repository (1 source) Naproxen; Translations: [NAPROXEN] Drug Allergy 11-27-2023 [facility] Repository Problems Problem Classification Problem Date Documented Da te Episodic/Chronic Abdominal pain (1 source) Unspecified abdominal pain; Translations: [Flank pain] Onset: 11-27-2023 Episodic Results Test Name Value Interpretation Reference Range Facil ity Encounters Encounter Date Encounter Type Care Provider Facility Start: 11-27-2023 End: 11-28-2023 ambulatory ROZ DUENAS Facility:[facility] Start: 11-27-2023 End: 11-27-2023 ambulatory ROZ DUENAS Facility:[facility] Payers Date Payer Category Payer Medicare [id number] Progress note 11-27-2023 Note Date & Type Note Facility 11-27-2023 Note HNO ID: [id number] Author: ROZ DUENAS DO Service: ? Author Type: Physician Type: Progress Notes Filed: 11/27/2023 16:36 Note Text: Patient referred by Dr. Hoyt for DVT.. The impression and plan will be communicated by way of the shared electronic record or faxed under separate cover letter. HPI: The patient is a 77-year-old male with a past medical history significant for stage IIIb chronic kidney disease and vertigo. He presented to the emergency room at [facility] in 11/10/2023 after noticing dyspnea when going up the basement steps. On presentation, he was tachycardic with a heart rate of 118. Blood pressure is 119/94. Respiratory rate was 19 and the oxygen saturation was 88% on room air. CBC demonstrated a mild leukocytosis with white count of 13,200. Mild monocytosis with 11.4 monocytes. Hgb 13.7 g/dL, Hct 42.1% and platelet count 176K. Creatinine was 1.79 mg/dL. D-dimer was 241.5 Covid negative. CTA of the chest showed pulmonary emboli in the mid and distal aspects of the left and right main pulmonary arteries with extension into all 5 pulmonary lobes as well as small subtle emboli noted in the right mid and lower lobe, left mid and lower lobe and right mid upper and lower lobe, left upper and lower lobe. There was evidence of heart straining with broadening of the interventricular septum and reflux of contrast into the IVC. He was started on heparin drip and admitted to the PCU. Saturations improved and he was able to be weaned off supplemental O2. After approximately 36 hours, he was transition to apixaban 10 mg twice daily for 7 days with a plan to transition to 5 mg twice daily after that. First dose of apixaban was given prior to discharge. An echocardiogram obtained during admission demonstrated a left ventricular ejection fraction of 65%. There was mild LVH. Stage I diastolic dysfunction was noted. 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 He was also found to have mild mitral valve insufficiency and moderate to severe eccentric tricuspid valveinsufficiency. Lower extremity duplex ultrasound identified DVT in the left proximal femoral artery distally to the calf. A hypercoagulable panel was obtained. He was not up-to-date on age and gender appropriate cancer screening. Protein C antigen was 101%. Functional protein C was 108%. Anticardiolipin antibodies were negative. Antithrombin functional and immunologic was normal at 115 and 101% respectively. Beta-2 glycoprotein antibodies were negative. PCR detected no mutation of prothrombin. Factor V Leiden was negative. Dyspnea improved. No dyspnea with stairs. Home pulse ox okay. No exertional chest pain/pressure. No unusual bleeding with exception bloody mucous on occasion when blowing nose. Had cough and sinus drainage about week prior to admission. Saw Dr. Roblero for follow up. Has follow up echocardiogram and PFTs scheduled. Week after [place], was helping a friend install bathroom noticed pleuritic pain lower left. Was seen by PCP--muscle pull do to activity. No recurrence of that pain. No left leg swelling or pain. PSA 04/2023 done at [facility] was under 6.5 ng/mL. No prior colonoscopy. PAST MEDICAL HISTORY Diagnosis Date DVT (deep venous thrombosis) (HCC) Pulmonary embolism (HCC) Vertigo PAST SURGICAL HISTORY Procedure Laterality Date ANES NERVE MUSC TENDON FASCIAANDBURSA KNEEAND/POPLT left knee in 1970 ALLERGIES Allergen Reactions Advil [Ibuprofen] Other: See Comments Lip swelling Aleve [Naproxen] Other: See Comments Lip swelling Current Outpatient Medications Medication Sig acetaminophen (TYLENOL ARTHRITIS PAIN) 650 mg CR tablet Take 1,300 mg by mouth every 8 hours as needed. apixaban (ELIQUIS) 5 mg tab(s) Take 5 mg by mouth two times a day. guaifenesin/codeine phos(GUAIFENESIN AC 10 MG-100 MG/5 ML ORAL LIQUID) 1-2 teaspoons up to every 6 hours desoximetasone (TOPICORT) 0.25 % TOPICAL Crea Apply to psoriasis plaques on open areas of trunk, arms, legs, qday to bid selectively as tolerated until clear and then taper off as able and directed; avoid entire face (especially eyes/eyelids) and deep fold areas (eg groin, axillae, etc). No current facility-administered medications for this visit. 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 Family History Problem Relation Age of Onset Heart Attack Father Brother-- from ?kidney failure age 76-77. Mother-- in MVA when younger. Maternal aunt--Possibly had DVT. ROS: Constitutional: No fever. No drenching night sweats. Normal appetite. No unexplained weight loss. No significant fatigue. Neuro: No recent ADAMS and imbalance. No symptoms of sensory neuropathy. Several episodes vertigo last (more content not included)... [facility] Summary Purpose Family History No Family History Records Found Advance Directives No Advanced Directives Records Found Additional Source Comments (unrecognized sect ion and content) No Status Records Found INFORMATION SOURCE (unrecogn ized section and content) FOR RECORDS PERTAINING TO PATIENTS WHO ARE OR HAVE BEEN ENROLLED IN A CHEMICAL DEPENDENCY/SUBSTANCEABUSE PROGRAM, SOME INFORMATION MAY BE OMITTED. This clinical summary was aggregated from multiple sources. Caution should be exercised in using it in the provision of clinical care. This summary normalizes information from multiple sources, and as a consequence, information in this document may materially change the coding, format and clinical context of patient data. In addition, data may be omitted in some cases. CLINICAL DECISIONS SHOULD BE BASED ON THE PRIMARY CLINICAL RECORDS. [facility] [employer] [facility]. provides no warranty or guarantee of the accuracy or completeness of information in this document.
[2023-11-30 00:35] LABS: Bacteria 0 SEEN /hpf (None Seen); Mucous, Urine 0 SEEN /hpf (<or=2+); Red Blood Cells-Urine 0 SEEN /hpf (0-5); Squamous Epithelial Cells - UA 0 SEEN /hpf (0-5); White Blood Cells 0 SEEN /hpf (0-5)
[2023-11-30 00:37] LABS: Absolute Lymphocyte Count 1.05 X10^3/uL (0.83-4.51); Basophil# 0.05 X10^3/uL; Basophil% 0.6 % (0-1); Eosinophil# 0.23 X10^3/uL; Eosinophils% 2.8 % (0-5); Hematocrit 45.4 % (40-54); Hemoglobin 14.9 g/dL (13.0-16.5); Lymphocyte # 1.05 X10^3/ul (0.83-4.51); Lymphocyte % 12.8 % (19-41); Mean Corp Hgb Conc 32.8 g/dL (32-36); Mean Corpuscular Hgb 29.9 pg (27.0-32.0); Mean Platelet Vol. 10.4 fl (6.2-12.0); Monocyte# 0.79 X10^3/uL; Monocyte% 9.6 % (0-10); NRBC Flagged by Analyzer 0 % (0-5); Neutrophil # 6.04 X10^3/uL (2.7-7.7); Neutrophil % 73.7 % (47-70); Platelet Count 278 K/mm3 (150-450); RBC Distribution Width CV 12.9 % (11.6-14.6); RBC Distribution Width SD 42.9 fl (35.1-43.9); Red Blood Count 4.99 M/mm3 (4.6-6.2); White Blood Count 8.2 K/mm3 (4.4-11.0)
[2023-11-30 00:40] LABS: Color, Urine Yellow (Yellow); Glucose, Dipstick Normal (Normal); Ketone-Dipstick Negative (Negative); Leukocyte Esterase-Dipstick Negative /ul (Negative); Nitrite-Dipstick Negative (Negative); Occult Blood-Urine 25 /ul (Negative); Protein-Dipstick 30 mg/dl (Negative); Urine Bilirubin Dipstick Negative (Negative); Urine Clarity Clear (Clear); Urine Urobilinogen Normal (Normal)
[2023-11-30] MEDS: 0.9% Normal Saline (1000mL) 1,000 ML 125 ML IV (00:40)
[2023-11-30 00:44] LABS: Anion Gap 3 (5-15); BUN 29 mg/dL (7-18); BUN/Creat Ratio 20.3 RATIO (10-20); Calcium,Total 9.1 mg/dL (8.5-10.1); Chloride 113 mmol/L (98-107); Creatinine, Serum 1.43 mg/dL (0.70-1.30); EST Glomerular Filtration Rate 51 mL/min (>60); Est Glom Filt Rate - Afr Amer 62 mL/min (>60); Estimated Creatinine Clearance 42.52 ml/min; Glucose 111 mg/dL (74-106); Sodium Level 139 mmol/L (136-145)
[2023-11-30] MEDS: Amox/Clavulanate 875 MG Tablet PO (02:19)
== END 2023-11-30 02:29 | disposition home or self-care (01) ==
PROVIDERS: Emergency Provider Emergency Medicine; PCP Family Medicine; Visit Provider Emergency Medicine
DX: K57.32 Diverticulitis of large intestine without perforation or abscess without bleeding (principal); I26.99 Other pulmonary embolism without acute cor pulmonale; N18.32 Chronic kidney disease, stage 3b; Z79.01 Long term (current) use of anticoagulants
CPT/HCPCS: 74177; 80048; 81001; 85025; 96360; 96361; 99282; J7030; Q9967; A4216

== ENCOUNTER → 2023-12-12 | Outpatient (CLI) | payer MEDICARE, BC, SELFPAY ==
[2023-12-14 14:09] LABS: PSA, Free 3.65 ng/mL; PSA, Free % 44.8 % (.)
== END | disposition home or self-care (01) ==
LOC: MFPLAB 15:49
PROVIDERS: PCP Family Medicine; Visit Provider Family Medicine
DX: R97.20 Elevated prostate specific antigen [PSA] (principal)
CPT/HCPCS: 36415; 84153; 84154

== ENCOUNTER 2023-12-29 08:22 | Day surgery (SDC) | payer MEDICARE, BC, SELFPAY ==
[2023-12-29] VITALS (7 sets, daily range): BP systolic 82–155; BP diastolic 57–89; PULSE 62–100; RESP 16–18; TEMP 36.2–36.5; O2SAT 93–100; BMI 22.9
--- OUTSIDE RECORDS SUMMARY | 2023-12-29 08:25 | XMS RPT_ITS | CCD ---
Author Name Unknown Address [address] [place] [address] Organization [facility] Care Team Providers Care Workforce Development Program Director Name Role Phone Unavailable Primary Care Provider UnavailMORALES Mccoy Referring Unavailable MORALES DUENAS Referring Unavailable MORALES DUENAS Referring Unavailable MORALES DUENAS Attending Unavailable Allergies Allergy Classification Reported Allergen(s) Allergy Type Date of Onset Reaction(s) Facility (5 sources) Ibuprofen; Translations: [IBUPROFEN] Drug Allergy 11-27-2023 Other: See Comments [facility] (5 sources) Naproxen; Translations: [NAPROXEN] Drug Allergy 11-27-2023 Other: See Comments [facility] Medications Completed/Discontinued Medications Medication Drug Class(es) Dates Sig (Normalized) Sig (Original) 8 hr acetaminophen 650 mg extended release oral tablet (4 sources) take 2 tablets by mouth every eight hours as needed acetaminophen (TYLENOL ARTHRITIS PAIN) 650 mg CR tablet Take 1,300 mg by mouth every 8 hours as needed. 0 Active Problems Problem Classification Problem Date Documented Da te Episodic/Chronic Abdominal pain (2 sources) Flank pain; Translations: [Unspecified abdominal pain] Onset: 12-12-2023 12-12-2023 Episodic Phlebitis; thrombophlebitis and thromboembolism (2 sources) Embolism from thrombosis of vein of lower extremity ; Translations: [Chronic embolism and thrombosis of unspecified deep veins of left lower extremity] Onset: 12-12-2023 12-12-2023 Chronic Results Test Name Value Interpretation Reference Range Facil ity Encounters Encounter Date Encounter Type Care Provider Facility Start: 12-21-2023 Telephone encounter Morales ibarra DO Work Phone: Hematology/Oncology Procedures Date Procedure Procedure Detail Performing Clinician Start: 12-20-2023 Us abdominal real ti me w/image limited Morales Duenas DO Work Phone: Start: 12-12-2023 Us retroperitoneal r eal time w/image complete Morales Duenas DO Work Phone: Plan of Treatment Date Care Activity Detail Author Start: 11-06-2023 Advance Directive Discussion Advance Directive Discussion [facility] Start: 11-06-2023 Depression Assessment Depression Ass essment [facility] Start: 07-07-2023 Covid-19 Vaccine () Covid-19 Vaccine () [facility] Start: 07-07-2023 Influenza vaccination Influenza Vacc ine (#1) [facility] Start: 12-06-2019 Urine microalbumin profile DTaP,Tdap,Td Vaccine (1 - Tdap) [facility] Start: 2011 Pneumococcal Vaccine : 65+ (1 of 1 - PCV) Pneumococcal Vaccine: 65+ (1 of 1 - PCV) [facility] Start: 12-06-2007 Diabetes Screening Diabetes Screenin g [facility] Start: 2006 RSV Vaccine (1 - 1-d ose 60+ series) RSV Vaccine (1 - 1-dose 60+ series) [facility] Start: 1964 Hepatitis C screening Hepatitis C Sc [facility] Immunizations Immunization Date Immunization Notes Care Provider Scott meade 10-10-2021 influenza virus vacc ine, unspecified formulation Us Work Phone: [facility] Payers Date Payer Category Payer Medicare [id number] [address] [employer] [address] DICARE SUPPLEMENT [id number] 2016-Present [phone] [address] [place] [address] Indemnity [id number] 2011 Medicare MEDICARE MEDICAR E A AND B [id number] 2011-Present [phone] [address] [address] [place] [address] Medicare [id number] 2011 Medicare [id number] Social History Date Type Detail Facility Start: 11-27-2023 Tobacco smoking stat us NHIS Never smoked tobacco [facility] Start: 11-27-2023 Tobacco use and exposure Smoke less tobacco non-user [facility] Start: 11-27-2023 Alcohol intake Current non-dr inspector filter tip of alcohol (finding) [facility] Start: 11-27-2023 History of Social function [facility] Start: 11-27-2023 Tobacco use panel [facility] Start: 1945 Sex Assigned At Not on file [facility] Note 12-21-2023 Telephone Encounter - Nhi Garrido - 12/21/2023 3:15 PM ESTTelephone Encounter - Sujatha Lopez LPN - 12/21/2023 2:39 PM EST Note Date & Type Note Facility 12-21-2023 Miscellaneous Notes Formattin g of this note might be different from the original. Message relayed to patient Message left on patient's VM asking him to contact the office for results and medication instructions. Sujatha Lopez LPN ----- Message from Morales Duenas DO sent at 12/21/2023 2:22 PM EST ----- Ultrasound of his liver was normal. He should remain on apixaban 5 mg twice daily indefinitely. Does not have to follow-up with this office. documented in this encounter [facility] Progress note 12-20-2023 Note Date & Type Note Facility 12-20-2023 Note HNO ID: [id number] Author: WEST FOWLER RDMS Service: ? Author Type: Labor/Excavator Type: Progress Notes Filed: 12/20/2023 08:23 Note Text: Radiology Service Progress Note PATIENT NAME: Maxx Turk DATE OF SERVICE: December 20, 2023 TIME: 8:23 AM PATIENT IDENTITY VERIFICATION COMPLETED USING TWO (2) IDENTIFIERS: Name and Date of confirmed by patient verbally. FALL SCREENING: Has the patient had 2 falls in the last year or 1 fall with injury or currently using an Ambulatory Assistive Device (Walker, Cane, Wheelchair, Crutches, etc.)? No PATIENT GENDER DATA: Male PATIENT RELEVANT IMPLANT DATA REVIEWED: Not Applicable PATIENT PRESENTS WITH AN IMPLANTABLE OR ATTACHED HOTEL VALET ATTENDANT: No RADIOLOGY DEPARTMENT: Ultrasound PERIPHERAL IV DATA: Not applicable SIGNED BY: West Fowler RDMS December 20, 2023 8:23 AM [facility] History of Present illness Narrative 12-20-2023 West Fowler RDMS - 12/20/2023 7:00 AM EST Note Date & Type Note Facility 12-20-2023 History of Presen t illness Narrative Radiology Service Progress Note PATIENT NAME: Maxx Turk DATE OF SERVICE: December 20, 2023 TIME: 8:23 AM PATIENT IDENTITY VERIFICATION COMPLETED USING TWO (2) IDENTIFIERS: Name and Date of confirmed by patient verbally. FALL SCREENING: Has the patient had 2 falls in the last year or 1 fall with injury or currently using an Ambulatory Assistive Device (Walker, Cane, Wheelchair, Crutches, etc.)? No PATIENT GENDER DATA: Male PATIENT RELEVANT IMPLANT DATA REVIEWED: Not Applicable PATIENT PRESENTS WITH AN IMPLANTABLE OR ATTACHED HOTEL VALET ATTENDANT: No RADIOLOGY DEPARTMENT: Ultrasound PERIPHERAL IV DATA: Not applicable SIGNED BY: West Fowler RDMS December 20, 2023 8:23 AM documented in this encounter [facility] Note 12-19-2023 Telephone Encounter - Ronna Dillard LPN - 12/19/2023 8:50 AM ESTTelephone Encounter - Morales Duenas DO - 12/18/2023 5:36 PM EST Note Date & Type Note Facility 12-19-2023 Miscellaneous Notes Formattin g of this note might be different from the original. Spoke with pt., given information concerning lab and Ultrasound of abd. Is scheduled for tomorrow. results . Has upcoming appt. With Dr Allred 01/02/24. Copy of this note faxed to PCP Dr. Cherie Dillard LPN Can let him know the ultrasound of his kidneys showed no suggestion of cancer in the kidneys. Prostate was enlarged. He should have a check of PSA if not done in the last year. Please fax a copy of this report to his PCP. Also, he was supposed to have an ultrasound of his right upper quadrant as well. Can we have that scheduled? Morales Duenas DO documented in this encounter [facility] Progress note 12-12-2023 Note Date & Type Note Facility 12-12-2023 Note HNO ID: [id number] Author: WEST FOWLER RDMS Service: ? Author Type: Labor/Excavator Type: Progress Notes Filed: 12/12/2023 11:19 Note Text: Radiology Service Progress Note PATIENT NAME: Maxx Turk DATE OF SERVICE: December 12, 2023 TIME: 11:19 AM PATIENT IDENTITY VERIFICATION COMPLETED USING TWO (2) IDENTIFIERS: Name and Date of confirmed by patient verbally. FALL SCREENING: Has the patient had 2 falls in the last year or 1 fall with injury or currently using an Ambulatory Assistive Device (Walker, Cane, Wheelchair, Crutches, etc.)? No PATIENT GENDER DATA: Male PATIENT RELEVANT IMPLANT DATA REVIEWED: Not Applicable PATIENT PRESENTS WITH AN IMPLANTABLE OR ATTACHED HOTEL VALET ATTENDANT: No RADIOLOGY DEPARTMENT: Ultrasound PERIPHERAL IV DATA: Not applicable SIGNED BY: West Fowler RDMS December 12, 2023 11:19 AM [facility] History of Present illness Narrative 12-12-2023 West Fowler RDMS - 12/12/2023 10:45 AM EST Note Date & Type Note Facility 12-12-2023 History of Presen t illness Narrative Radiology Service Progress Note PATIENT NAME: Maxx Turk DATE OF SERVICE: December 12, 2023 TIME: 11:19 AM PATIENT IDENTITY VERIFICATION COMPLETED USING TWO (2) IDENTIFIERS: Name and Date of confirmed by patient verbally. FALL SCREENING: Has the patient had 2 falls in the last year or 1 fall with injury or currently using an Ambulatory Assistive Device (Walker, Cane, Wheelchair, Crutches, etc.)? No PATIENT GENDER DATA: Male PATIENT RELEVANT IMPLANT DATA REVIEWED: Not Applicable PATIENT PRESENTS WITH AN IMPLANTABLE OR ATTACHED HOTEL VALET ATTENDANT: No RADIOLOGY DEPARTMENT: Ultrasound PERIPHERAL IV DATA: Not applicable SIGNED BY: West Fowler RDMS December 12, 2023 11:19 AM documented in this encounter [facility] Progress note 11-27-2023 Note Date & Type Note Facility 11-27-2023 Note HNO ID: [id number] Author: MORALES DUENAS, DO Service: ? Author Type: Physician Type: [...] He presented to the emergency room at [facility] in 11/10/2023 after noticing dyspnea when going [...] up echocardiogram and PFTs scheduled. Week after [place], was helping a friend install bathroom noticed pleuritic pain lower left. Was seen by PCP--muscle pull do to activity. No recurrence of that pain. No left leg swelling or pain. PSA 04/2023 done at [facility] was under 6.5 ng/mL. No prior colonoscopy. 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 Family History Problem Relation Age of Onset Heart Attack Father Brother-- from ?kidney failure age 76-77. Mother-- in MVA when younger. Maternal aunt--Possibly had DVT. ROS: Constitutional: No fever. No drenching night sweats. Normal appetite. No unexplained weight loss. No significant fatigue. Neuro: No recent ADAMS and imbalance. No symptoms of sensory neuropathy. Several episodes vertigo last (more content not included)... [facility] Evaluation note Note Date & Type Note Facility documented in this encounter [facility] Reason for referral (narrative) Diagnostic Procedure Only (Routine) - Closed Note Date & Type Note Facility Referral ID Status Reason Start Date Expiration Date V isits Requested Visits Authorized [id number] Closed Auto-Generate d Referral 11/27/2023 12/26/2024 1 1 [facility] Summary Purpose Family History No Family History Records Found Advance Directives No Advanced Directives Records Found Additional Source Comments Source Comments (unrecognize d section and content) In the event this informatio n is protected by the Federal Confidentiality of Alcohol and Drug Abuse Patient Records regulations: The Federal rules restrict any use of the information to criminally investigate or prosecute any alcohol or drug abuse patient.[facility] the event this information is protected by the Federal Confidentiality of Alcohol and Drug Abuse Patient Records regulations: The Federal rules restrict any use of the information to criminally investigate or prosecute any alcohol or drug abuse patient.[facility] the event this information is protected by the Federal Confidentiality of Alcohol and Drug Abuse Patient Records regulations: The Federal rules restrict any use of the information to criminally investigate or prosecute any alcohol or drug abuse patient.[facility] the event this information is protected by the Federal Confidentiality of Alcohol and Drug Abuse Patient Records regulations: The Federal rules restrict any use of the information to criminally investigate or prosecute any alcohol or drug abuse patient.[facility] Reason for Visit (unrecogniz ed section and content) Specialty Diagnoses / Procedures Referred By Contac t Referred To Contact US IMAGING Diagnoses Leg DVT (deep venous thromboembolism), chronic, left (HCC) Flank pain Procedures US ABD RIGHT UPPER QUADRANT US ABDOMINAL REAL TIME W/IMAGE LIMITED Morales Duenas, DO [address] [place] [address] [place] [address] Referral ID Status Reason Start Date Expiration Date V isits Requested Visits Authorized [id number] Closed Auto-Generate d Referral 11/27/2023 12/26/2024 1 1 Reason Comments Results Reason Comments Radiology US (unrecognized sect ion and content) No Status [...] BE BASED ON THE PRIMARY CLINICAL RECORDS. [facility]. provides no warranty or guarantee of the accuracy or completeness of information in this document.
[2023-12-29] MEDS: Lactated Ringers 1,000 ML 15 ML IV (08:45)
--- NOTE | 2023-12-29 08:58 | HP.PCM_ITS ---
History and Physical Date of Admission: 12/29/23 Visit Reasons: COLONOSCOPY SCREENING Chief Complaint: [id number] screening Is patient in pain?: No Allergies ibuprofen [From Advil] Allergy (Verified 12/12/23 08:23) Angioedemanaproxen [From Aleve] Allergy (Verified 12/12/23 08:23) Angioedema Medications meclizine 25 mg tablet 25 mg PO 4X/DAY PRN PRN Dizziness #20 tabs 02/25/23 [Rx Confirmed 12/12/23] acetaminophen 325 mg capsule 650 mg PO DAILY PRN knee pain 11/10/23 [History Confirmed 12/12/23] acetaminophen 650 mg tablet,extended release (8 Hour Pain Reliever) 1,300 mg PO DAILY PRN knees 11/11/23 [History Confirmed 12/12/23] apixaban 5 mg tablet (Eliquis) 5 mg PO BID #67 tabs 11/12/23 [Rx Confirmed 12/12/23] peg 3350-electrolytes 236 gram-22.74 gram-6.74 gram-5.86 gram solution 4,000 ml PO ONCE #4,000 mL 12/12/23 [Rx Confirmed 12/12/23] PFSH Medical History (Updated 12/12/23 @ 11:[address] 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 William Crespo and Dr. Jesus Lou from the [facility] for surgical consultation regarding a bout of suspected diverticulitis and need for colonoscopy. He had presented to the emergency room on November 30, 2023 with left lower quadrant abdominal pain. It is of note that in addition to his other medications he is on apixaban. He has had a history of DVT. At the time of his ER visit his white count was 8.2 with a hemoglobin 14.9 hematocrit 45.4 and a platelet count of 278,000. He had a CT abdomen pelvis performed I have personally reviewed those images. There is a 4.5 cm segment of acute diverticulitis in the descending colon. He was placed on Augmentin therapy. Patient is rather complicated. November 10, 2023 he had an extensive left lower extremity DVT and pulmonary embolus. He was initiated on Eliquis therapy. He has been seen in consultation by electric motor and generator assembler Dr. Morales Vasquez. By verbal report this is felt to be an unprovoked event. The patient presented with no leg pain but he did present with shortness of breath. He has never had a colonoscopy. Family history is negative for colon cancer or colon polyps. He is scheduled per Dr. Morales Vasquez to undergo ultrasound of the liver and kidney looking for occult disease. Now what is of note however as the patient is 77. 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 ROS General General: No weight change, appetite, fatigue, colon cancer, breast cancer or weakness HEENT HEENT: No difficulty swallowing, eye injury, eye surgery, swollen glands or hoarseness Endo Endocrine: No thyroid disease, diabetes mellitus, thyroid cancer, Hair loss, heat intolerance or cold intolerance Skin Skin: No rash or changing moles Musc Musculoskeletal: Yes arthritis; No back problems, rheumatoid arthritis, gout or joint pain Cardio Cardiovascular: No murmur, pacemaker, heart disease, atrial fibrillation, high blood pressure, heart attack, heart stent, palpitations, shortness of breat with exertion or chest pain Psych Psychiatric: No depression, anxiety or hearing voices Resp Respiratory: No shortness of breath, No sleep apnea, No cough, No COPD, No ast hma, No emphysema and No wheezing Gastro Gastrointestinal: No abdominal pain, No nausea or vomiting, No diarrhea, No constipation, No blood in stool, No acid reflux, No hemorrhoids, No ulcers, No gallbladder problem and No black,tarry stools Rod Hematologic: Yes blood thinners, No blood disorders, No bleeding, No anemia and Yes blood clots Neuro Neurologic: No system reviewed and no additional complaints, except as documented, No as per HPI, No abnormal gait, No abnormal hearing, No abnormal movements, No abnormal speech, No behavioral changes, No burning sensations, No confusion, No convulsions, No disequilibrium, No dizziness, No localized weakness, No frequent falls, No headache(s), No lack of coordination, No loss of vision, No memory loss, No numbness, No other visual disturbances, No radicular pain, No restless legs, No sensory deficit, No syncope, No tingling, No tremor(s), No weakness and No other Exam Const General: cooperative, comfortable and no acute distress HENMT Head: normal to inspection Eyes General: appearance normal, both eyes and all related structures Neck Neck: normal visual inspection Chest Chest palpation & inspection: normal inspection of the chest Resp Effort & Inspection: normal respiratory effort Auscultation: clear to auscultation bilaterally Cardio Rate: regular rate Rhythm: regular rhythm GI Inspection: normal to inspection Palpation: soft and no hepatosplenomegaly Auscultation: normal bowel sounds Other: No mass or tenderness. In particular no evidence of left lower quadrant tenderness. Musc Cervical Spine: normal cervical lordosis Skin General: no rashes or lesions noted Neuro General: patient alert, patient awake and patient oriented x3 Extrem General: no calf tenderness Psych Appearance: grossly normal Assessment and Plan Assessment and Plan (1) Abnormal abdominal CT scan: Status: Acute Orders: Orders Colonoscopy 12/29/23 Medications: New peg 3350-electrolytes 236-22.74-6.74 -5.86 gram until fecal effluent is clear; do not exceed a total volume of 4000 mL 4,000 mL PO ONCE 4,000 mL 0RF Plan 77-year-old gentleman is referred because of a unprovoked DVT and pulmonary embolus. Search for occult malignancy is being pursued. Patient is never had a colonoscopy. He is on Eliquis therapy for DVT PE with initial symptoms November 10, 2023. He states that several physicians have encouraged him to pursue the colonoscopy but physicians have also cautioned him about the risk of bleeding. We extensively discussed procedural technique benefit risk complication fernando mcclelland. I have personally reviewed his CT imaging and the I agree that the item seen on CT very likely represents a focus of diverticulitis the fact is he did not have an elevated white blood cell count at that time and this could be a source of malignancy. I do propose for him that we not wait an extensive period of months before proceeding. I would like to find a scheduling date hopefully within 2 weeks to pursue the colonoscopy with possible biopsy or polypectomy as indicated. We will have him hold his Eliquis just the day before. Patient is aware that we are trying to walk a fine line between risk and benefit. The patient additionally is aware that our intervention on polyps or potential treatment of intervening polyps might differ because of his Eliquis therapy. He has had an opportunity to ask and have questions answered. He is aware that there is some increased risk with the procedure but he is also aware of the risk of delaying definitive diagnosis. With that in mind we will schedule and proceed at his discretion. I appreciate the option of assisting with his surgical care. Copy: Dr. William Crespo and Dr. Jesus Peterson M.D., F.A.C.S. I have examined the patient and the H&P has been reviewed. There are no clinical changes since date of exam. Mehul Peterson M.D., F.A.C.S.
--- NOTE | 2023-12-29 09:30 | COLBX_PTH ---
PATHOLOGY RESULTS PATIENT: SHAHANA RAJAN LOC: EN U#:[id number] AGE/SX: 78/M ROOM: RE12/29/[address]: Dr. Mehul Peterson MD : 1945 BED: DIS: 12/29/2023 SPEC #: [id number] RECD: 12/29/23 12:46 STATUS: YESICA CAO #: [id number] KYLAH: 12/29/23 09:[address]: Mehul Peterson DEPT: SURGICAL PATHOLOGY RECD BY: Lizzy Velasco ENTERED: 12/29/23 12:47 SP TYPE: COLON BX OTHR DR: Dr. William Crespo MD Tissues: Rectum, NOS Procedures: Surgery Specimen Level IV HEADER OPERATION: Colonoscopy with polypectomy PRE-OP DIAGNOSIS: Abnormal abdominal CT scan TISSUE SUBMITTED: Rectal polyp MICROSCOPIC DIAGNOSIS Rectal polyp, biopsy: Fragments of hyperplastic polyp. AM:jasmin 01/01/2024 MICROSCOPIC DESCRIPTION Slides are reviewed. GROSS DESCRIPTION Received in fixative is one container labeled with the patient's name and designated rectal polyp. The specimen consists of one irregular fragment of light min soft tissue that measures 0.4 x 0.4 x 0.1 cm. The specimen is totally submitted in one cassette. / SJ:jasmin 12/29/2023 TC:5 CPT: 12713
--- NOTE | 2023-12-29 10:37 | OP.COLON_ITS ---
Patient Name: Maxx Turk Procedure Date: 12/29/2023 10:03 AM Date of : 1945 Age: 78 Procedure: Colonoscopy Indications: Abnormal CT of the GI tract Providers: Mehul Peterson MD Medicines: See the Anesthesia note for documentation of the administered medications Patient Profile: Last Colonoscopy: none. The patient's first colonoscopy is today. Complications: No immediate complications. Procedure: Pre-Anesthesia Assessment: - Prior to the procedure, a History and Physical was performed, and patient medications and allergies were reviewed. The patient's tolerance of previous anesthesia was also reviewed. The risks and benefits of the procedure and the sedation options and risks were discussed with the patient. All questions were answered, and informed consent was obtained. Prior Anticoagulants: The patient has taken Eliquis (apixaban), last dose was 1 day prior to procedure. ASA Grade Assessment: III - A patient with severe systemic disease. After reviewing the risks and benefits, the patient was deemed in satisfactory condition to undergo the procedure. After I obtained informed consent, the scope was passed under direct vision. Throughout the procedure, the patient's blood pressure, pulse, and oxygen saturations were monitored continuously. The Colonoscope was introduced through the anus and advanced to the cecum, identified by appendiceal orifice and ileocecal valve. The colonoscopy was performed without difficulty. The patient tolerated the procedure well. The quality of the bowel preparation was fair. The ileocecal valve and the appendiceal orifice were photographed. Scope In: 10:13:19 AM Scope Withdrawal Time 0 hours 11 minutes 27 seconds Scope Out: 10:29:07 AM Total Procedure Duration Time 0 hours 15 minutes 48 seconds Findings: The digital rectal exam findings include non-thrombosed external hemorrhoids, non-thrombosed internal hemorrhoids, internal hemorrhoids that prolapse with straining, but spontaneously regress to the resting position (Grade II) and enlarged prostate. A 6 mm polyp was found in the proximal rectum. The polyp was sessile. The polyp was removed with a cold snare. Resection and retrieval were complete. Coagulation for hemostasis using argon beam at 0.3 liters/minute and 20 meng was successful. Multiple diverticula were found in the sigmoid colon. The exam was otherwise without abnormality. Impression: - Preparation of the colon was fair. - Non-thrombosed external hemorrhoids, non-thrombosed internal hemorrhoids, internal hemorrhoids that prolapse with straining, but spontaneously regress to the resting position (Grade II) and enlarged prostate found on digital rectal exam. - One 6 mm polyp in the proximal rectum, removed with a cold snare. Resected and retrieved. Treated with argon beam coagulation. - Diverticulosis in the sigmoid colon. - The examination was otherwise normal. Recommendation: - Discharge patient to home. - Resume previous diet. - Continue present medications. - Repeat colonoscopy in 3 years for surveillance based on pathology results. Bowel prep was only fair so consideration for follow-up colonoscopy 3 years based upon that. Because of the patient's recent history deep venous thrombosis and pulmonary embolization argon beam cauterization of the post polypectomy site was performed and the patient will resume anticoagulation. - Telephone my office for pathology results in 1 week. Procedure Code(s): --- Professional --- 63018, Colonoscopy, flexible; with removal of tumor(s), polyp(s), or other lesion(s) by snare technique Diagnosis Code(s): --- Professional --- K64.1, Second degree hemorrhoids K64.4, Residual hemorrhoidal skin tags D12.8, Benign neoplasm of rectum K57.30, Diverticulosis of large intestine without perforation or abscess without bleeding N40.0, Benign prostatic hyperplasia without lower urinary tract symptoms R93.3, Abnormal findings on diagnostic imaging of other parts of digestive tract CPT copyright 2021 [employer]. All rights reserved. The codes documented in this report are preliminary and upon professional fee coder review may be revised to meet current compliance requirements. Mehul Peterson MD 12/29/2023 10:37:16 AM This report has been signed electronically. Number of Addenda: 0 Note Initiated On: 12/29/2023 10:03 AM
--- NOTE | 2023-12-29 10:37 | OP.CCLET_ITS ---
12/29/2023 Sandip Crespo [address] [place] [address] Re : Colonoscopy procedure for Maxx Turk Dear Dr. Crespo This procedure was performed on Friday, December 29, 2023. My impressions and recommendations are as follows: Impressions : - Preparation of the colon was fair. - Non-thrombosed external hemorrhoids, non-thrombosed internal hemorrhoids, internal hemorrhoids that prolapse with straining, but spontaneously regress to the resting position (Grade II) and enlarged prostate found on digital rectal exam. - One 6 mm polyp in the proximal rectum, removed with a cold snare. Resected and retrieved. Treated with argon beam coagulation. - Diverticulosis in the sigmoid colon. - The examination was otherwise normal. Recommendations : - Discharge patient to home. - Resume previous diet. - Continue present medications. - Repeat colonoscopy in 3 years for surveillance based on pathology results. Bowel prep was only fair so consideration for follow-up colonoscopy 3 years based upon that. Because of the patient's recent history deep venous thrombosis and pulmonary embolization argon beam cauterization of the post polypectomy site was performed and the patient will resume anticoagulation. - Telephone my office for pathology results in 1 week. My findings are described in the full procedure note, which is enclosed. If I can be of further assistance, please feel free to contact me at Doctor phone number(s): Work: . Sincerely, Mehul Peterson MD 12/29/2023 10:37:16 AM This report has been signed electronically.
== END 2023-12-29 11:28 | disposition home or self-care (01) ==
LOC: EN 08:22 → AC 08:25
PROVIDERS: PCP Family Medicine; Referring Provider Surgery; Visit Provider Surgery
PROC: 0DJD8ZZ Inspection of Lower Intestinal Tract, Via Natural or Artificial Opening Endoscopic (ICD-10-PCS; CPT 45378; principal; 2023-12-29 09:25)
DX: Z12.11 Encounter for screening for malignant neoplasm of colon (principal); N18.32 Chronic kidney disease, stage 3b; K57.30 Diverticulosis of large intestine without perforation or abscess without bleeding; K62.1 Rectal polyp; N40.0 Benign prostatic hyperplasia without lower urinary tract symptoms; K64.4 Residual hemorrhoidal skin tags; Z79.01 Long term (current) use of anticoagulants; Z86.718 Personal history of other venous thrombosis and embolism; K64.1 Second degree hemorrhoids; R93.5 Abnormal findings on diagnostic imaging of other abdominal regions, including retroperitoneum; K21.9 Gastro-esophageal reflux disease without esophagitis; Z87.19 Personal history of other diseases of the digestive system
CPT/HCPCS: 45385; 88305; J7120; J2405

== ENCOUNTER → 2024-06-21 | Outpatient (CLI) | payer MEDICARE, BC, SELFPAY ==
--- NOTE | 2024-06-21 07:41 | ECHOD_ITS ---
Reason For Study: Pulmonary HTN Procedure This was a 2D Doppler, Color Flow transthoracic echocardiogram. RV Strain performed. Exam performed in department. Left Ventricle Normal LV size. The estimated ejection fraction is 65 %. No evidence for diastolic dysfunction. No regional wall motion abnormalities noted. Right Ventricle Normal RV size. Normal systolic function. Atria Normal left atrium. The right atrium is mildly enlarged. No doppler evidence for ASD. Mitral Valve There is no mitral valve stenosis. Trivial mitral valve insufficiency. Tricuspid Valve There is no tricuspid stenosis. Mild tricuspid valve insufficiency. Pulmonary artery systolic pressure is 30-35 mmHg. Aortic Valve Trisinus/trileaflet aortic valve. There is no aortic stenosis. No aortic valve insufficiency. Pulmonic Valve There is no pulmonic valvular stenosis. Trivial pulmonic valve insufficiency. Great Vessels Normal aortic root. Pericardium/Pleural No pericardial effusion. MMode/2D Measurements & Calculations LVIDd: 4.1 cm IVSd: 0.94 cm Ao root diam: 2.9 cm LVIDs: 2.7 cm LVPWd: 0.92 cm LA dimension: 3.4 cm RVDd: 4.4 cm FS: 35.1 % LAV(MOD-bp): 52.5 ml LVAd ap4: 25.6 cm2 SV(MOD-sp4): 44.5 ml LAV(MOD-bp) Indexed: 28.2 ml/m2 LVLd ap4: 7.4 cm LAV(MOD-sp2): 42.4 ml EDV(MOD-sp4): 71.0 ml LAV(MOD-sp4): 51.3 ml EDV(sp4-el): 75.3 ml LVAs ap4: 14.1 cm2 LVLs ap4: 6.4 cm ESV(MOD-sp4): 26.5 ml ESV(sp4-el): 26.6 ml EF(MOD-sp4): 62.7 % EF(sp4-el): 64.6 % SV(sp4-el): 48.6 ml LA A4 area: 19.9 cm2 RA A4 area: 19.1 cm2 TAPSE: 2.1 cm Time Measurements MV dec time: 0.21 sec Doppler Measurements & Calculations MV E max tomi: 62.0 cm/sec Lat Peak E' Tomi: 8.9 cm/sec Med Peak E' Tomi: 8.8 cm/sec MV A max tomi: 59.3 cm/sec E/E' lat: 6.9 E/E' med: 7.1 MV E/A: 1.0 MV V2 max: 75.9 cm/sec MV P1/2t max tomi: 67.3 cm/sec Ao V2 max: 111.8 cm/sec MV max P.3 mmHg MV P1/2t: 68.5 msec Ao max P.0 mmHg MV V2 mean: 36.6 cm/sec MV dec slope: 287.7 cm/sec2 Ao V2 mean: 76.3 cm/sec MV mean P.65 mmHg Ao mean P.7 mmHg MV V2 VTI: 25.2 cm MVA(P1/2t): 3.2 cm2 Ao V2 VTI: 25.9 cm AV (velocity ratio): 0.82 LV V1 max: 92.7 cm/sec PA V2 max: 167.9 cm/sec PI dec slope: 124.3 cm/sec2 LV V1 max P.5 mmHg PA max PG (full): 10.1 mmHg LV V1 mean P.7 mmHg PA V2 mean: 107.5 cm/sec LV V1 mean: 60.8 cm/sec LV V1 VTI: 21.2 cm TR max tomi: 260.2 cm/sec TR max P.1 mmHg ECHO/Echo Complete Interpretation Summary The estimated ejection fraction is 65 %. No evidence for diastolic dysfunction. The right atrium is mildly enlarged. Trivial mitral valve insufficiency. Ordering Physician: Mehul Howard V Referring Physician: Mehul Howard V Performed By: Migel Garibay RCS
== END | disposition home or self-care (01) ==
LOC: CVS 07:34
PROVIDERS: PCP Family Medicine; Referring Provider Internal Medicine Pulmonary Disease; Visit Provider Internal Medicine Pulmonary Disease
DX: I27.20 Pulmonary hypertension, unspecified (principal); I26.99 Other pulmonary embolism without acute cor pulmonale
CPT/HCPCS: 93306; 93971

== ENCOUNTER 2024-09-25 10:42 | Outpatient (CLI) | payer MEDICARE, BC, SELFPAY ==
--- NOTE | 2024-09-25 10:45 | VDLE_ITS ---
Reason For Study: HX LLE DVT RIGHT LEFT GSV is normal. GSV is normal. CFV is compressible, spontaneous, phasic, CFV is compressible, spontaneous, phasic, competent and demonstrates normal competent, and demonstrates normal augmentation. augmentation. FV is compressible, spontaneous, phasic, FV is compressible, spontaneous, phasic, competent and demonstrates normal competent and demonstrates normal augmentation. augmentation. POP V is compressible, spontaneous, phasic, POP V is compressible, spontaneous, phasic, competent and demonstrates normal competent and demonstrates normal augmentation. augmentation. T/P Trunk is compressible. T/P Trunk is PARTIALLY COMPRESSIBLE with PTV is compressible. bright intraluminal echoes noted. Finding is RT PerV is compressible. consistent with CHRONIC DVT. Procedure PTV is compressible. This is a venous duplex using B-mode, color LT PerV is compressible. flow and spectral Doppler. Non-vascularized area of mixed echoes noted Exam performed in department. at medial knee measuring approximately 3.19cm The exam was diagnostic. x 1.69cm. VL/Venous Duplex US - Abiel Extrem Interpretation Summary Chronic venous changes are noted in the left tibio-peroneal trunk, which is par tially compressible and demonstrates bright intraluminal echogenicity. The remainder of the left lo wer extremity deep venous system is patent and compressible. Deep veins of the right lower extremi ty are patent and compressible segmentally. There is no evidence of right lower extremity deep ve in thrombosis. Valvular competence appears intact within the proximal deep venous systems bila terally. The great saphenous veins appear bilaterally patent and compressible segmentally. A non-v ascular, heterogeneous structure is noted near the left medial knee, measuring 3.19 cm x 1.69 cm. This may represent a seroma or hematoma. Clinical correlation is advised. Ordering Physician: Mehul Howard V Referring Physician: Julio Crespo Performed By: Jacky Perdomo RVT
== END 2024-09-25 23:59 | disposition home or self-care (01) ==
LOC: CVS 10:43
PROVIDERS: PCP Family Medicine; Referring Provider Internal Medicine Pulmonary Disease; Visit Provider Internal Medicine Pulmonary Disease
DX: I26.99 Other pulmonary embolism without acute cor pulmonale (principal); Z86.718 Personal history of other venous thrombosis and embolism
CPT/HCPCS: 93970

== ENCOUNTER → 2025-01-01 | Outpatient (CLI) | payer MEDICARE, BC, SELFPAY ==
[2025-01-03 04:43] LABS: Pro- Brain NATRIURETIC PEPTIDE 89 pg/mL (<=1800)
== END | disposition home or self-care (01) ==
LOC: MFPLAB 10:13
PROVIDERS: PCP Family Medicine; Referring Provider Internal Medicine Pulmonary Disease; Visit Provider Internal Medicine Pulmonary Disease
DX: I27.20 Pulmonary hypertension, unspecified (principal)
CPT/HCPCS: 36415; 83880

== ENCOUNTER → 2025-01-06 | Outpatient (CLI) | payer MEDICARE, BC, SELFPAY ==
[2025-01-10 12:08] LABS: PSA, Free 4.07 ng/mL; PSA, Free % 44.7 % (.)
== END | disposition home or self-care (01) ==
LOC: MFPLAB 08:40
PROVIDERS: PCP Family Medicine; Visit Provider Urology
DX: N40.1 Benign prostatic hyperplasia with lower urinary tract symptoms (principal)
CPT/HCPCS: 36415; 84153; 84154

== ENCOUNTER → 2025-02-03 | Outpatient (CLI) | payer MEDICARE, BC, SELFPAY ==
--- NOTE | 2025-02-03 10:53 | RAD_ITS ---
PROCEDURE: KNEE 4 OR MORE VIEWS 02/03/2025 REASON FOR EXAM: BILATERAL KNEES. OA TECHNIQUE: 4 view(s) of the left knee COMPARISON: Same-day right knee x-rays FINDINGS: Left knee: No acute fracture or dislocation. Severe osteoarthrosis of the medial compartment with large area of gkot-[id number] contact and subjacent areas of sclerosis with remodeling and spurring. Associated approximate 1.2 cm of medial shift/alignment offset of the femur in relation to the tibia and a resulting moderate varus deformity of the knee. Possible [id number] contact of the tibial spines with the lateral femoral condyle. Patellofemoral compartment osteoarthrosis. Large appearing intra-articular osseous bodies versus synovial chondromatosis with moderate appearing joint effusion. Mild lateral subluxation of the patella relating to the femur may be related to the spurring/osteophyte formation at the medial femoral condyle. RAD/Knee 4 or More Views IMPRESSION: Severe appearing left knee osteoarthrosis as described above with associated va neeraj deformity. Multiple large intra-articular osseous bodies versus synovial chondromatosis wi th moderate joint effusion. Reading Location: [id number]
--- NOTE | 2025-02-03 10:53 | RAD_ITS ---
PROCEDURE: KNEE 4 OR MORE VIEWS 02/03/2025 REASON FOR EXAM: BILATERAL KNEES OA TECHNIQUE: 4 view(s) of the right knee COMPARISON: Same day images of the left knee FINDINGS: Right knee: Severe joint space narrowing of the medial compartment with near hrug-fs-bppo contact and mild adjacent sclerosis and moderate medial femoral osteophyte formation with a resulting mild to moderate varus deformity. Lateral compartment chondrocalcinosis. Patellofemoral joint space appears within limits. Patellofemoral spurring noted. Multiple small appearing intra-articular osseous bodies versus synovial chondromatosis. Moderate appearing joint effusion. No fracture or dislocation. RAD/Knee 4 or More Views IMPRESSION: A moderate to severe appearing osteoarthrosis as described above is worse at th e medial compartment with a resulting tous-ar-wkhfmkut varus deformity of the knee. Multiple intra-articular osseous bodies versus synovial chondromatosis. Moderate joint effusion. Lateral compartment chondrocalcinosis. Reading Location: [id number]
== END | disposition home or self-care (01) ==
LOC: MTRAD 10:50
PROVIDERS: PCP Family Medicine; Referring Provider Family Medicine; Visit Provider Family Medicine
DX: M17.0 Bilateral primary osteoarthritis of knee (principal)
CPT/HCPCS: 73564

== ENCOUNTER 2025-06-23 22:26 | Emergency (ER) | payer MEDICARE, BC, SELFPAY ==
[2025-06-23 22:26] VITALS: BP 158/96; PULSE 77; RESP 16; TEMP 36.3; O2SAT 96; BMI 23.6
--- NOTE | 2025-06-23 22:34 | EX.ED.DYSGE1 ---
HPI History of Present Illness Chief Complaint: Palpitations Informant: patient Onset/Context/Timing Onset: Days Context: Sudden Onset Timing: Intermittent Quality: Skipping Location: Chest Worsened by: Eating Relieved by: Nothing Narrative Narrative: Patient presents with palpitations that have been intermittent over the past couple days. Patient states that it began rather suddenly tonight. Patient states it feels like his heart is skipping a beat. Patient states that sometimes it is worse after eating. Patient states he did take his Zofran tonight which did help with some of the nausea. Patient states he has been burping more recently. Patient admits to some mild nausea but denies any vomiting. Patient admits to some mild shortness of breath. Patient also admits to mild headache. Patient denies any fevers or chills. Patient denies any cough. Patient states he saw his primary care physician for this. Patient states he had a heart monitor placed which he is currently wearing. Patient states he is scheduled to follow-up with his primary care physician after he takes this off in a couple days. [facility] Medical History Wears glasses Arthritis Easy bruising History of diverticulitis Gastric reflux Non-smoker Pulmonary embolism Meniere disease DVT (deep venous thrombosis) Blood clot in leg Diastolic dysfunction Hyperglycemia Stage 3b chronic kidney disease (CKD) Vertigo Home Medications ?Medication ?Instructions ?Recorded ?Last Taken ?Type meclizine 25 mg tablet 25 mg PO 4X/DAY PRN PRN Dizziness 02/25/23 Unknown Rx #20 tabs acetaminophen 325 mg capsule 650 mg PO DAILY PRN knee pain 11/10/23 11/10/23 History acetaminophen 650 mg 1,300 mg PO DAILY PRN knees 11/11/23 Unknown History tablet,extended release (8 Hour Pain Reliever) ondansetron 4 mg disintegrating 4 mg PO DAILY PRN nausea and 12/22/23 Unknown History tablet vomiting apixaban 5 mg tablet (Eliquis) 5 mg PO DAILY 06/23/25 Unknown History Allergy/AdvReac Type Severity Reaction Status Date / Time ibuprofen (From Advil) Allergy Angioedema Verified 06/23/25 22:27 naproxen (From Aleve) Allergy Angioedema Verified 06/23/25 22:27 Family History (Updated 12/12/23 @ 08:21 by Shirley Sheehan) Father Heart disease Surgical History History of carpal tunnel release of both wrists H/O knee surgery Social History household members: spouse housing: house 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 Smoking Status: Never smoker alcohol intake: never substance use type: does not use ROS ROS ED Constitutional Constitutional ED: Denies chills or fever(s) Eyes Eyes: Denies blurry vision or change in vision ENT ENT ED: Denies rhinorrhea or sore throat Cardiovascular Cardiovascular: Reports palpitations; Denies chest pain Respiratory/Chest Respiratory/Chest: Reports dyspnea; Denies cough Gastrointestinal Gastrointestinal: Reports nausea; Denies vomiting Genitourinary Genitourinary ED: Denies dysuria or hematuria Musculoskeletal Musculoskeletal: Denies back pain or neck pain Integumentary Denies abscess or rash Neurologic Neurologic: Reports headache(s); Denies weakness Allergic/Immunologic Allergic/Immunologic ED: Denies mouth swelling or urticaria EXAM Physical Exam Const Vital Signs: 06/23/25 22:26 06/23/25 22:26 06/23/25 22:53 Temperature 97.3 F L Temperature Source Oral Pulse Rate 77 Respiratory Rate 16 Respiratory Effort Normal Non-Labored Blood Pressure 158/96 H Blood Pressure Mean 116 Pulse Ox 96 100 Oxygen Delivery Method Room Air Room Air 06/23/25 23:33 06/24/25 00:00 06/24/25 01:00 Temperature Temperature Source Pulse Rate 66 70 70 Respiratory Rate 24 H 20 H 20 H Respiratory Effort Blood Pressure 151/95 H 135/94 H 149/98 H Blood Pressure Mean 113 107 115 Pulse Ox 96 99 98 Oxygen Delivery Method Room Air Room Air Room Air Positive well nourished and well developed General Appearance ED: well developed and NAD HEENT Reports moist mucous membranes Neck supple and no JVD Resp normal respiratory effort and clear to auscultation bilaterally Cardio regular rate and regular rhythm GI non-tender and non-distended Palpation: soft Extremity normal to inspection General Extremety ED: Negative for edema or tenderness General Extremity: Negative for edema Neuro oriented x3, CN's II-XII intact bilaterally and no sensory deficits noted Sensorium / Orientation: alert Motor Exam: strength 5/5 throughout Psych mental status grossly normal MDM MDM MDM Narrative Medical decision making narrative: Differential diagnosis includes PVCs, cardiac dysrhythmia, cardiac ischemia, electrolyte abnormality, pneumonia, bronchitis, gastroesophageal reflux disease, and anxiety. EKG will be obtained to assess for cardiac dysrhythmia and cardiac ischemia. Chest x-ray will be obtained to assess for pneumonia or bronchitis. CBC will be obtained to assess for leukocytosis and anemia. Basic metabolic profile will be obtained to assess for electrolyte abnormality and renal function. High-sensitivity troponin will be obtained to assess for cardiac ischemia. 2-hour repeat high-sensitivity troponin will be obtained to assess for ongoing cardiac ischemia. History & Record Review Additional record(s) reviewed:: Prior ED visit and Prior labs Lab Data Attestation: I reviewed the patient's lab results. Lab results narrative: CBC was reviewed and was within normal limits. Basic metabolic profile was reviewed. BUN was 23 and creatinine was 1.47. These are consistent with previous results. High-sensitivity troponin was reviewed and was slightly elevated at 29. 2-hour repeat high-sensitivity troponin was reviewed and was unchanged at 29. Serum magnesium level was reviewed and was normal at 2.2. Labs: Laboratory Results - last 24 hr 06/23/25 06/24/25 22:38 00:57 WBC 8.6 RBC 4.68 Hgb 14.9 Hct 43.8 MCV 93.6 MCH 31.8 MCHC 34.0 RDW Std Deviation 45.1 H RDW Coeff of K[place] 13.2 Plt Count 248 MPV 10.8 Immature Gran % (Auto) 0.500 Neut % (Auto) 72.6 H Lymph % (Auto) 14.8 L [place] % (Auto) 9.8 Eos % (Auto) 2.0 Baso % (Auto) 0.3 Absolute Neuts (auto) 6.3 Absolute Lymphs (auto) 1.27 Nucleated RBC % 0 Sodium 144 Potassium 4.2 Chloride 110 H Carbon Dioxide 20.7 L Anion Gap 13 BUN 23 H Creatinine 1.47 H Estim Creat Clear Calc 40.07 L Est GFR (MDRD) Non-Af 49 L BUN/Creatinine Ratio 15.6 Glucose 98 Calcium 9.5 Magnesium 2.2 Troponin T High Sens 29 H Troponin T Hi Sens 2 Hr 29 H Radiography Chest X-Ray - ED: 2 View, Read by ED Physician, Read by Radiologist and No Acute Disease Diagnostic Testing: Clinical Impression(s) from Imaging Studies Chest X-Ray 06/23/25 23:15 IMPRESSION: No acute cardiopulmonary disease. Reading Location: [facility] PA and lateral chest x-ray was obtained. There are 2 views. On my independent interpretation, lung casanova are clear. There is normal cardiac silhouette. Bony thorax is normal. There is no acute process noted. Radiologist also interpreted the x-ray and agrees. EKG Initial EKG: Attestation: I personally reviewed and interpreted this EKG as follows: Interpretation: Sinus Rhythm (86) and No Acute Injury Pattern Comments: EKG was obtained. On my independent interpretation, it showed a normal sinus rhythm with a rate of 86. MA interval, QRS interval, and QTc intervals were all normal. [place] was normal. There are no acute ST or T wave changes. Prior EKG tracings: available for review Prior: Unchanged (11/10/2023) Treatment and Re-Evaluation :: Patient was placed on continuous cardiac and pulse oximeter monitors. Patient was occasionally have PVCs. Otherwise, patient remained in normal sinus rhythm. Patient was advised of his findings. Patient was instructed to follow-up with his primary care physician in 5 to 7 days. Patient was instructed to return if worse in any way. Patient and family understood and were agreeable with the plan. All questions were answered. Discharge Plan Triage Chief Complaint: Palpitations ED Provider: Hilario Jones Dx/Rx/DC Orders Clinical Impression: Heart palpitations, Chronic kidney disease Instructions: ED Heart Palpitations Prescriptions: No Action meclizine 25 mg tablet 25 mg PO 4X/DAY PRN PRN (Reason: Dizziness) Qty: 20 0RF ondansetron 4 mg tablet,disintegrating 4 mg PO DAILY PRN (Reason: nausea and vomiting) acetaminophen 325 mg capsule 650 mg PO DAILY PRN (Reason: knee pain) acetaminophen [8 Hour Pain Reliever] 650 mg tablet extended release 1,300 mg PO DAILY PRN (Reason: knees) Eliquis 5 mg tablet 5 mg PO DAILY Rx Instructions: 2 tablets twice daily x 6 days and then decrease dose of 1 tablet twice daily First dose will be this evening Primary Care Provider: William Crespo Referrals: William Crespo MD [Primary Care Provider] - Keep Prisca appointment Print Language: Citizen Of [place] Disposition Disposition: Home, Self Care
[2025-06-23 22:53] VITALS: O2SAT 100
--- NOTE | 2025-06-23 22:53 | EKG12_ITS ---
Test Reason : DYSRHYTHMIA Blood Pressure : */* mmHG Vent. Rate : 86 BPM Atrial Rate : 86 BPM P-R Int : 152 ms QRS Dur : 66 ms QT Int : 352 ms P-R-T Axes : 75 4 19 degrees QTcB Int : 421 ms Normal sinus rhythm Septal infarct , age undetermined Abnormal ECG Confirmed by NATALIE LIVINGSTON MD ([id number]), editor managing director JORGE RIZO ([id number]) on 06/24/2025 8:51:10 AM Referred By: FLOYD Confirmed By: NATALIE LIVINGSTON MD
[2025-06-23 23:01] LABS: Hematocrit 43.8 % (40-54); Hemoglobin 14.9 g/dL (13.0-16.5); Immature Granulocytes Count 0.040 X10^3/uL (0.0-0.0); Mean Corp Hgb Conc 34.0 g/dL (32-36); Mean Corpuscular Volume 93.6 fL (80-94); Mean Platelet Vol. 10.8 fl (6.2-12.0); NRBC Flagged by Analyzer 0 % (0-5); Platelet Count 248 K/mm3 (150-450); RBC Distribution Width CV 13.2 % (11.6-14.6); RBC Distribution Width SD 45.1 fl (35.1-43.9); Red Blood Count 4.68 M/mm3 (4.6-6.2); White Blood Count 8.6 K/mm3 (4.4-11.0)
--- NOTE | 2025-06-23 23:15 | RAD_ITS ---
PROCEDURE: CHEST PA AND LATERAL 06/23/2025 REASON FOR EXAM: CHEST PAIN TECHNIQUE: CHEST PA AND LATERAL COMPARISON: 11/10/2023 FINDINGS: Lungs/Pleura: Clear. No pneumothorax or pleural effusion. No vascular congestion. Heart/Mediastinum: Normal in size. Probable cardiac loop recorder device. Bones/Soft tissues: Degenerative changes of the visualized spine. RAD/Chest PA and Lateral IMPRESSION: No acute cardiopulmonary disease. Reading Location: [id number]
[2025-06-23 23:33] VITALS: BP 151/95; PULSE 66; RESP 24; O2SAT 96
[2025-06-23 23:38] LABS: Anion Gap 13 (5-15); BUN 23 mg/dL (4-19); BUN/Creat Ratio 15.6 RATIO (10-20); Calcium,Total 9.5 mg/dL (7.6-11.0); Carbon Dioxide 20.7 mmol/L (21.0-32.0); Chloride 110 mmol/L (98-108); Estimated Creatinine Clearance 40.07 ml/min (50-250); Glucose 98 mg/dL (70-99); Magnesium 2.2 mg/dL (1.5-2.2); Potassium 4.2 mmol/L (3.3-5.1); Troponin T High Sensitivity 29 ng/L (<=22)
[2025-06-24] VITALS: BP 135/94; PULSE 70; RESP 20; O2SAT 99
[2025-06-24 01:00] VITALS: BP 149/98; PULSE 70; RESP 20; O2SAT 98
[2025-06-24 01:42] LABS: Troponin T High Sens 2 HR 29 ng/L (<=22)
[2025-06-24 02:01] VITALS: BP 154/90; PULSE 66; RESP 18; TEMP 36.1; O2SAT 99
== END 2025-06-24 02:07 | disposition home or self-care (01) ==
PROVIDERS: Emergency Provider Emergency Medicine; PCP Family Medicine; Visit Provider Emergency Medicine
DX: R00.2 Palpitations (principal); N18.32 Chronic kidney disease, stage 3b; R51.9 Headache, unspecified; Z86.718 Personal history of other venous thrombosis and embolism; Z86.711 Personal history of pulmonary embolism; K21.9 Gastro-esophageal reflux disease without esophagitis; Z79.01 Long term (current) use of anticoagulants; R06.00 Dyspnea, unspecified
CPT/HCPCS: 71046; 80048; 83735; 84484; 85025; 93005; 99284; A4216